=== PATIENT | female | born 1945 | race Caucasian/White ===

== ENCOUNTER → 2019-02-06 | Outpatient (CLI) | payer SELFPAY | PROVIDERS: Family Provider Family Medicine; Visit Provider Internal Medicine Medical Oncology | DX: D72.829 Elevated white blood cell count, unspecified (principal); R10.9 Unspecified abdominal pain; I10 Essential (primary) hypertension; E78.5 Hyperlipidemia, unspecified; J44.9 Chronic obstructive pulmonary disease, unspecified; I48.91 Unspecified atrial fibrillation; I50.9 Heart failure, unspecified; K21.9 Gastro-esophageal reflux disease without esophagitis; E03.9 Hypothyroidism, unspecified; M81.0 Age-related osteoporosis without current pathological fracture; F41.8 Other specified anxiety disorders; Z86.718 Personal history of other venous thrombosis and embolism | CPT/HCPCS: 99213 ==

== ENCOUNTER 2020-04-20 21:05 | Inpatient (IN) | payer MEDICARE, MEDICAID, SELFPAY ==
[2020-04-20] VITALS (11 sets, daily range): BP systolic 102–137; BP diastolic 50–64; PULSE 72–85; RESP 12–23; TEMP 36.9; O2SAT 90–95; BMI 22.4
--- NOTE | 2020-04-20 21:09 | XRR_ITS ---
PROCEDURE INFORMATION: Exam: XR Chest Exam date and time: 04/20/2020 9:47 PM Age: 74 years old Clinical indication: Shortness of breath; Prior surgery; Surgery type: Gb; Additional info: SOB TECHNIQUE: Imaging protocol: XR of the chest Views: 1 view. COMPARISON: No relevant prior studies available. FINDINGS: Lungs: The lungs are somewhat hyperinflated with increased interstitial markings, likely representing COPD. There is an airspace opacity in the left lower lobe. Possible trace left pleural effusion. No pneumothorax. Pleural spaces: See Lungs findings. Heart/Mediastinum: Unremarkable. No cardiomegaly. Vasculature: Aortic arch atherosclerotic calcifications seen. Bones/joints: Mild levocurvature of the spine and degenerative changes seen. XR/XR chest 1V portable [id number] IMPRESSION: 1. Left lower lobe airspace opacity. Pneumonia should be excluded clinically. 2. Possible trace left pleural effusion. 3. COPD changes.
--- NOTE | 2020-04-20 21:10 | ECG_ITS ---
[facility] Test Date: 2020-04-20 Pat Name: Ingrid Deras Department: Room: Gender: Female Communication Signals Intelligence: : 1945 Requested By: Matt Doran Order Number: [id number] Simpson MD: Srinath Kaye M.D. Measurements Intervals Kim Rate: 77 P: 54 MS: 129 QRS: -61 QRSD: 110 T: 35 QT: 360 QTc: 409 Interpretive Statements SINUS RHYTHM LEFT ANTERIOR FASCICULAR BLOCK [QRS AXIS <= -45, QR IN I, RS IN II] LEFT VENTRICULAR HYPERTROPHY AND ST-T CHANGE [VOLTAGE CRITERIA PLUS ST/T ABNORMALITY] No previous ECG available for comparison Electronically Signed On 04-21-2020 18:54:46 FERRYBOAT PILOT by Srinath Kaye M.D. [id number]
[2020-04-20 21:25] LABS: ABG PCO2 51.7 mmHg (35-45); ABG PH Result 7.34 (7.35-7.45); Arterial Blood Gas Hematocrit 37.8 % (37-47); Base Excess ABG 0.9 mmol/L (-2.0-2.0); Blood Gas Allen Test Pos; Blood Gas Sample Site Radial, left; Blood Gas Sample Type Arterial; Carboxyhemoglobin 2.3 %THgb (0.4-20.1); HCO3 ABG 27.5 mmol/L (22-26); HGB O2 Sat 82.2 % (95-100); Methemoglobin 0.8 % (0.4-1.5); Oxygen Device OXY MASK; PO2 ABG 47.1 mmHg (80.0-100.0); Total Hemoglobin 12.3 g/dL (12-16)
--- NOTE | 2020-04-20 21:27 | W.ED.GENADLT ---
HPI - General Adult General: Chief complaint: Shortness of Breath/Dyspnea Stated complaint: RESP DISTRESS Time Seen by Provider: 04/20/20 21:09 Source: EMS Limitations: altered mental status History of Present Illness: HPI narrative: Patient is an acute on chronically ill-appearing 74-year-old female brought into the ER by EMS for respiratory distress. EMS states that her home pulse ox was in the 70s. She was placed on a nonrebreather and satting in the upper 80s upon arrival. She was given a dose of Lasix and 20 mg of Decadron as well as a DuoNeb updraft in route. Patient seems somewhat confused and is unable to provide any significant history. Family states that she was not acting her baseline. Onset (ago): hour(s) Severity: severe Relieving factors: none Exacerbating factors: none Associated symptoms: Reports confusion, dyspnea and short of breath Review of Systems General: Reports: ROS unobtainable due to medical condition and ROS unobtainable due to mental status Resp: Reports: dyspnea Neuro: Reports: confusion PFSH ED PFSH: Medical History (Updated 04/20/20 @ 22:57 by Matt Doran MD) CHF (congestive heart failure) Chronic back pain COPD (chronic obstructive pulmonary disease) Fibromyalgia Hyperlipidemia Hypertension Hypothyroidism Paroxysmal atrial fibrillation Social History Smoking and tobacco status: former smoker Quit status (tobacco): has quit using tobacco Second hand smoke exposure: No Smoking risk assessment/counseling performed?: Yes Alcohol intake: never Desire information about alcohol rehabilitation?: No Counseling given: No Desire information about substance/drug rehabilitation?: No Counseling given: No Adopted: No Caregiver/support person: Yes Lives independently: Yes Housing: Apartment Marital status: Unknown Number of children: 2 Number of grandchildren: 4 Current occupational status: retired Physical Exam Const: COMMON NORMALS: no acute distress; negative for patient oriented x3 EXAM LIMITATIONS: altered mental status GENERAL APPEARANCE: cooperative ORIENTATION/CONSCIOUSNESS: Yes awake, Yes oriented to person, Yes oriented to place and Yes confused; not oriented to time HENMT: COMMON NORMALS: normocephalic, atraumatic and hearing grossly normal bilaterally HEAD & SCALP: normocephalic and atraumatic Eye: COMMON NORMALS: EOMs intact bilaterally and conjunctivae normal CONJUNCTIVA: Yes conjunctivae normal Neck/C-Spine: COMMON NORMALS: supple Chest: COMMONS NORMALS: normal inspection of the chest Resp: EFFORT & INSPECTION: No respiratory distress OTHER: Mild tachypnea with some mild increased respiratory effort. She is able to try to answer questions but due to her confusion has some difficulty doing so. Diminished breath sounds throughout. Cardio: COMMON NORMALS: regular rate and regular rhythm RATE: regular rate RHYTHM: regular rhythm GI: COMMON NORMALS: Soft to palpation and non-tender PALPATION: Yes Soft to palpation Extremity: COMMON NORMALS: normal to inspection and no clubbing, cyanosis or edema Neuro: COMMON NORMALS: negative for patient oriented x3 SENSORIUM/ORIENTATION: Yes oriented to person, Yes oriented to place and No oriented to time Psych: COMMON NORMALS: cooperative Skin: COMMON NORMALS: no rashes or lesions noted GENERAL SKIN EXAM: no rashes or lesions noted Course Vital Signs: Vital signs: Vital Signs Temperature 98.4 F 04/20/20 21:25 Pulse Rate 85 04/20/20 22:30 Respiratory Rate 18 04/20/20 22:30 Blood Pressure 131/57 04/20/20 22:30 Pulse Oximetry 94 04/20/20 22:30 MDM - General Adult MDM Narrative: Medical decision making narrative: Chronically ill 74-year-old female who presents with confusion and respiratory distress with hypoxemia. She was hypoxemic on nonrebreather and was placed on BiPAP. Chest x-ray appears show a left lower lobe consolidation. She has a leukocytosis with left shift. Covid swab is negative. She was started on broad-spectrum antibiotics with Rocephin and azithromycin for community-acquired pneumonia. Hospitalist has been consulted. Dr. Brown has accepted for admission. Lab Data: Attestation: I reviewed the patient's lab results. Labs: Lab Results 04/20/20 04/20/20 04/20/20 Range/Units 21:15 21:24 21:24 WBC 21.2 H (4.0-10.0) 10^3/ uL RBC 4.19 (4.1-5.3) 10^6/u L Hgb 12.1 (11.5-15.3) g/dL Hct 40.0 (37.0-47.0) % MCV 95.5 (81-99) fL MCH 28.9 (28.0-34.0) pg MCHC 30.3 (30.0-36.0) g/dL RDW 14.2 (12.1-15.1) % Plt Count 273 (130-400) 10^3/c mm MPV 10.0 (7.4-10.4) fL Neut % (Auto) 80.7 % Lymph % (Auto) 12.9 % Alcorn % (Auto) 4.6 % Eos % (Auto) 0.8 % Baso % (Auto) 0.4 % Neut # (Auto) 17.11 H (1.8-7.7) 10^3/u L Lymph # (Auto) 2.7 (0.8-4.8) 10^3/u L Alcorn # (Auto) 1.0 H (0.2-0.9) 10^3/u L Eos # (Auto) 0.2 (0.0-0.8) 10^3/u L Baso # (Auto) 0.1 (0.0-0.1) 10^3/u L Nucleated RBC % (a uto) 0 % Nucleated RBCs # 0.0 /100WBC Specimen Type Arterial Sample Site Radial, left ABG pH 7.34 L (7.35-7.45) ABG pCO2 51.7 H (35-45) mmHg ABG pO2 47.1 L (80.0-100.0) mmH g ABG HCO3 27.5 H (22-26) mmol/L ABG Base Excess 0.9 (-2.0-2.0) mmol/ L Babatunde Test Pos Hematocrit 37.8 (37-47) % Hgb O2 Saturation 82.2 L (95-100) % Carboxyhemoglobin 2.3 (0.4-20.1) %THgb Methemoglobin 0.8 (0.4-1.5) % Total Hemoglobin 12.3 (12-16) g/dL O2 Delivery Device Oxy mask O2 Liters/Min 15.0 % Store Standards Associate ID [email or web address] Sodium 140 (136-145) mmol/L Potassium 4.3 (3.5-5.1) mmol/L Chloride 101 (98-107) mmol/L Carbon Dioxide 25 (22-29) mmol/L Anion Gap 18.3 (5-19) BUN 19 (8-23) mg/dL Creatinine 2.2 H (0.5-0.9) mg/dL GFR Calculation Not Reportable Glucose 117 H (65-115) mg/dL Calculated Osmolal ity 293 (285-295) mOsm/k g Lactic Acid (0.5-2.2) mmol/L Calcium 8.7 (8.5-10.5) mg/dL Total Bilirubin 0.4 (0.15-1.2) mg/dL AST 31 (0-32) U/L ALT 19 (0-33) U/L Alkaline Phosphata se 104 (35-105) IU/L Troponin T Baselin e (0-10) ng/L NT-Pro-B Natriuret Pep 332 H (0-125) pg/mL Total Protein 6.5 L (6.6-8.7) g/dL Albumin 3.7 (3.5-5.2) g/dL Globulin 2.8 (1.3-4.6) g/dL SARS-CoV-2 Ag (Rap id) (Negative) 04/20/20 04/20/20 04/20/20 Range/Units 21:24 21:24 21:32 WBC (4.0-10.0) 10^3/ uL RBC (4.1-5.3) 10^6/u L Hgb (11.5-15.3) g/dL Hct (37.0-47.0) % MCV (81-99) fL MCH (28.0-34.0) pg MCHC (30.0-36.0) g/dL RDW (12.1-15.1) % Plt Count (130-400) 10^3/c mm MPV (7.4-10.4) fL Neut % (Auto) % Lymph % (Auto) % Alcorn % (Auto) % Eos % (Auto) % Baso % (Auto) % Neut # (Auto) (1.8-7.7) 10^3/u L Lymph # (Auto) (0.8-4.8) 10^3/u L Alcorn # (Auto) (0.2-0.9) 10^3/u L Eos # (Auto) (0.0-0.8) 10^3/u L Baso # (Auto) (0.0-0.1) 10^3/u L Nucleated RBC % (a uto) % Nucleated RBCs # /100WBC Specimen Type Sample Site ABG pH (7.35-7.45) ABG pCO2 (35-45) mmHg ABG pO2 (80.0-100.0) mmH g ABG HCO3 (22-26) mmol/L ABG Base Excess (-2.0-2.0) mmol/ L Babatunde Test Hematocrit (37-47) % Hgb O2 Saturation (95-100) % Carboxyhemoglobin (0.4-20.1) %THgb Methemoglobin (0.4-1.5) % Total Hemoglobin (12-16) g/dL O2 Delivery Device O2 Liters/Min % Store Standards Associate ID Sodium (136-145) mmol/L Potassium (3.5-5.1) mmol/L Chloride (98-107) mmol/L Carbon Dioxide (22-29) mmol/L Anion Gap (5-19) BUN (8-23) mg/dL Creatinine (0.5-0.9) mg/dL GFR Calculation Glucose (65-115) mg/dL Calculated Osmolal ity (285-295) mOsm/k g Lactic Acid 1.2 (0.5-2.2) mmol/L Calcium (8.5-10.5) mg/dL Total Bilirubin (0.15-1.2) mg/dL AST (0-32) U/L ALT (0-33) U/L Alkaline Phosphata se (35-105) IU/L Troponin T Baselin e 19 H (0-10) ng/L NT-Pro-B Natriuret Pep (0-125) pg/mL Total Protein (6.6-8.7) g/dL Albumin (3.5-5.2) g/dL Globulin (1.3-4.6) g/dL SARS-CoV-2 Ag (Rap id) Negative (Negative) Imaging Data^: CXR: My impression: Left lower lobe consolidation consistent with pneumonia. EKG Data^: EKG 1: EKG interpretation date: 04/20/20 EKG interpretation time: 21:45 Interpretation: Sinus rhythm. Rate of 77 bpm. Left axis deviation. Left anterior fascicular block noted. No ST elevation or depressions. ABG Data^: ABG Interpretation 1: ABG results: 02/28/21 21:15 ABG pH 7.34 L ABG pCO2 51.7 H ABG pO2 47.1 L ABG HCO3 27.5 H ABG Base Excess 0.9 Attestation: I personally reviewed and interpreted this ABG as follows: Interpretation: Hypoxemia. Discharge Plan Discharge Patient Disposition: Admitted As Inpatient Clinical Impression: Community acquired pneumonia Qualifiers: Laterality: left Lung location: lower lobe of lung Qualified Code(s): J18.9 - Pneumonia, unspecified organism Respiratory failure Qualifiers: Chronicity: acute Respiratory failure complication: hypoxia Qualified Code(s): J96.01 - Acute respiratory failure with hypoxia Condition: Stable Coding Level of Care Code ED Head Field Hockey Coach for g Fwd Exam Comprehensive
[2020-04-20 22:00] LABS: Basophils # 0.1 10^3/uL (0.0-0.1); Basophils % 0.4 %; Eosinophils # 0.2 10^3/uL (0.0-0.8); Eosinophils % 0.8 %; Hemoglobin 12.1 g/dL (11.5-15.3); Lymphocytes # 2.7 10^3/uL (0.8-4.8); Lymphocytes % 12.9 %; Mean Corpuscular HGB Conc 30.3 g/dL (30.0-36.0); Mean Corpuscular Hemoglobin 28.9 pg (28.0-34.0); Mean Corpuscular Volume 95.5 fL (81-99); Monocytes % 4.6 %; Neutrophils # 17.11 10^3/uL (1.8-7.7); Neutrophils % 80.7 %; Nucleated Red Blood Cells % 0 %; Platelet Count 273 10^3/cmm (130-400); Red Blood Count 4.19 10^6/uL (4.1-5.3); Red Cell Distribution Width 14.2 % (12.1-15.1); White Blood Count 21.2 10^3/uL (4.0-10.0)
[2020-04-20 22:20] LABS: Lactic Sepsis W/Reflex 1.2 mmol/L (0.5-2.2)
[2020-04-20 22:20] LABS: SARS Covid-2 Antigen Negative (Negative)
[2020-04-20 22:23] LABS: Alanine Aminotransferase 19 U/L (0-33); Albumin Level 3.7 g/dL (3.5-5.2); Alkaline Phosphatase 104 IU/L (35-105); Anion Gap 18.3 (5-19); Aspartate Amino Transferase 31 U/L (0-32); Blood Urea Nitrogen 19 mg/dL (8-23); Calcium 8.7 mg/dL (8.5-10.5); Carbon Dioxide 25 mmol/L (22-29); Chloride 101 mmol/L (98-107); Globulin 2.8 g/dL (1.3-4.6); Glucose 117 mg/dL (65-115); NT Pro B Type Natriuretic Pept 332 pg/mL (0-125); Osmolality Calculated 293 mOsm/kg (285-295); Potassium 4.3 mmol/L (3.5-5.1); Sodium 140 mmol/L (136-145); Total Bilirubin 0.4 mg/dL (0.15-1.2); Total Protein 6.5 g/dL (6.6-8.7)
[2020-04-20 22:24] LABS: Troponin(5th) Baseline 19 ng/L (0-10)
[2020-04-20] MEDS: azithromycin 500 MG in sodium chloride 0.9% 250 ML 250 MG IV (22:32)
[2020-04-20] MEDS: cefTRIAXone 1,000 MG in sodium chloride 0.9% (plus) 50 ML 100 MG IV (22:32)
--- NOTE | 2020-04-20 22:54 | P.HP_ITS ---
Providers/Chief Complaint Primary Care Provider: Roderick Andrews Chief Complaint: RESP DISTRESS History of Present Illness Ingrid Deras is a 74 year old female who presented today with chief complaint of worsening shortness of breath. Granddaughter is at the bedside who is endorsing that around noon she started shaking really bad, an episode of seizure was noticed by the family member. 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 Today after noon her symptoms started getting worse she was getting labored and short of breath, she was becoming wheezing and congested. No episode of seizure, vomiting, patient did not endorse chest pain before her shortness of breath, no recent diarrhea or recent falls. Diagnosis in the ER revealed sepsis secondary to community-acquired pneumonia left lower lobe infiltrate, she has been given ceftriaxone and azithromycin in the ER to decrease work of breathing she was started on BiPAP she did not tolerate nonrebreather mask she also received Lasix and DuoNeb treatment Covid antigen negative, D-dimer 1.3, creatinine 2.2, I will start her on heparin, when I evaluated her she was obtunded and drowsy however able to open her eyes on verbal command but very lethargic and seems postictal, BiPAP would be considered high risk and I discussed intubation with the family, son and granddaughter were adamant that they would like to hold off on intubation for now, they were also questioning why ICU is needed, their questions were answered to their satisfaction. I am also allowing her granddaughter to stay with her overnight. Family stating that this is her usual routine after seizures and she perks up in the morning. I have explained the indications and contraindications of BiPAP and risk of vomiting and aspiration including hypoxia cardiac arrest, family is okay with ICU admission on BiPAP and would like to hold off on intubation for now. Review of Systems General: Reports: ROS unobtainable due to medical condition (Post ictal) Medications/Allergies Home Medications Medication Instructions Recorded Confirmed Last Taken Type alendronate 70 mg tablet 70 mg PO ONCE 02/22/19 12/18/19 Unknown History aspirin 81 mg tablet,delayed 81 mg PO ONCE 02/22/19 12/18/19 Unknown History release atorvastatin 10 mg tablet 10 mg PO ONCE 02/22/19 12/18/19 Unknown History baclofen 10 mg tablet 10 mg PO BID 02/22/19 12/18/19 Unknown History tstdrgeghm-qtznpthhgxtjx-jxvygpgg 1 tab PO Q6H PRN 02/22/19 12/18/19 Unknown His tory 50 mg-325 mg-40 mg tablet clonazepam 1 mg tablet 1 mg PO BID 02/22/19 12/18/19 Unknown History dicyclomine 10 mg capsule 10 mg PO BID 02/22/19 12/18/19 Unknown History digoxin 125 mcg (0.125 mg) tablet 250 mcg PO Q6H 02/22/19 12/18/19 Unknown History diltiazem HCl 30 mg tablet 30 mg PO TID 02/22/19 12/18/19 Unknown History fluoxetine 40 mg capsule 40 mg PO QAM 02/22/19 12/18/19 Unknown History furosemide 20 mg tablet 10 mg PO QAM 02/22/19 12/18/19 Unknown History levothyroxine 125 mcg capsule 125 mcg PO ONCE 02/22/19 12/18/19 Unknown History loratadine 10 mg capsule 10 mg PO ONCE 02/22/19 12/18/19 Unknown History meclizine 12.5 mg tablet 12.5 mg PO BID 02/22/19 12/18/19 Unknown History mirtazapine 15 mg tablet 15 mg PO ONCE 02/22/19 12/18/19 Unknown History montelukast 10 mg tablet 10 mg PO ONCE 02/22/19 12/18/19 Unknown History oxycodone 30 mg tablet 30 mg PO Q6H PRN 02/22/19 12/18/19 Unknown History trazodone 150 mg tablet PO 02/22/19 12/18/19 Unknown History Allergies Allergy/AdvReac Type Severity Reaction Status Date / Time celecoxib [From Celebrex] Allergy Intermediate Hives Verified 04/20/20 21:33 Sulfa (Sulfonamide Allergy Intermediate hives Verified 04/20/20 21:33 Antibiotics) PFSH Acute PFSH: Medical History CHF (congestive heart failure) Chronic back pain COPD (chronic obstructive pulmonary disease) Oxygen dependent DVT (deep venous thrombosis) Fibromyalgia Hyperlipidemia Hypertension Hypothyroidism Paroxysmal atrial fibrillation TIA (transient ischemic attack) Surgical History No pertinent past surgical history Family History Other Family history non-contributory Social History Smoking and tobacco status: former smoker Quit status (tobacco): has quit using tobacco Second hand smoke exposure: No Smoking risk assessment/counseling performed?: Yes Alcohol intake: never Desire information about alcohol rehabilitation?: No Counseling given: No Desire information about substance/drug rehabilitation?: No Counseling given: No Adopted: No Caregiver/support person: Yes Lives independently: Yes Housing: Apartment Marital status: Unknown Number of children: 2 Number of grandchildren: 4 Current occupational status: retired Vitals/I&O/Wt Last Vital Signs Temp 98.4 F 04/20/20 21:25 Pulse 85 04/20/20 22:30 Resp 18 04/20/20 22:30 BP 131/57 04/20/20 22:30 Pulse Ox 94 04/20/20 22:30 Weight last 48 hrs Weight 52.163 kg Physical Exam Narrative: EXAM NARRATIVE: Frail elderly female Currently on BiPAP settings 18/8 FiO2 60% respiratory rate 10 tidal volume 700- 800, saturating 90 to 92% however she is drowsy She is able to open her eyes on verbal command, she moves her extremities to noxious stimuli, no active seizure-like activity noticed, no strokelike symptoms noted no facial droop noticed when I remove the BiPAP mask, she is weak but has withdrawal stimulus to noxious stimuli of all 4 extremities EOMI S1, S2 sinus rhythm heart rate ranging between 60-66 normal hemodynamics Abdomen soft nontender Lower extremity no edema gangrene or ulcer Drowsy, GCS 10 No skin cellulitis Data : 04/20/20 21:24 04/20/20 21:24 Micro: Microbiology 04/20/20 21:30 Blood Culture - Preliminary Blood SPECIMEN COLLECTED 04/20/20 21:24 Blood Culture - Preliminary Blood SPECIMEN COLLECTED A&P Assessment and plan (1) Community acquired pneumonia: Community-acquired pneumonia with metabolic encephalopathy Admit to ICU We will initiate ceftriaxone and azithromycin regimen, requested urine antigens, DuoNeb every 4 as needed Status: Acute Qualifiers: Laterality: left Lung location: lower lobe of lung Qualified Code(s): J18.9 - Pneumonia, unspecified organism (2) Acute and chronic respiratory failure with hypoxia: Currently doing well on BiPAP however high risk for aspiration with underlying pneumonia and chest congestion, family is adamant about holding off on intubation ABG reveals hypoxia, D-dimer high for her age, will start therapeutic heparin protocol VQ mismatch due to left lower lobe infiltrate, PE not ruled out Status: Acute (3) Sepsis: Criteria met with tachypnea and leukocytosis secondary to left lower lobe pneumonia, currently on antibiotic, judicious use of fluids due to slight pulmonary venous congestion and high BNP clinically looks euvolemic Requested blood culture Status: Acute (4) Post-ictal aphasia: Breakthrough seizures witnessed by the family member at noon I will load her with Keppra No severe electrolyte abnormality noticed Would request CT head as well She has been afebrile Status: Acute Additional A&P Information Hypothyroidism: Continue 125 mcg of levothyroxine Congestive heart failure without acute exacerbation clinically, hold off on Lasix, clinically she is euvolemic Discontinue mirtazapine, baclofen and oxycodone Full code: Patient is high risk for intubation family is adamant about not intubating her at this point although her GCS is 10 and she is very drowsy while she is on BiPAP, they would like to discuss further if she deteriorates from her current situation N.p.o. Therapeutic dose of heparin initiated Attestations Medical Necessity Statement*: Admit to ICU for sepsis, community-acquired pneumonia, metabolic encephalopathy post ictal phase of breakthrough seizures Time Spent in Patient Care: Greater than 35 minutes (>than 50% of time spent in counselling and/or direct pt care on unit) . 50mins Coding Level of Care Code Acute Insulation Board Back Tender for [facility] Fwd Diagnoses Community acquired pneumonia J18.9 Laterality: left Lung location: lower lobe of lung Acute and chronic respiratory failure with hypoxia J96.21 Sepsis A41.9 Post-ictal aphasia R47.01
[2020-04-20 23:09] LABS: INR 1.06 (0.8-1.2)
--- NOTE | 2020-04-20 23:10 | ECG_ITS ---
[facility] Test Date: 2020-04-21 Pat Name: Ingrid Deras Department: Room: 278 Gender: Female Ingot Passer: : 1945 Requested By: Matt Doran Order Number: [id number] Simpson MD: Srinath Kaye M.D. Measurements Intervals [place] Rate: 64 P: 69 SC: 152 QRS: -58 QRSD: 103 T: 33 QT: 397 QTc: 413 Interpretive Statements SINUS RHYTHM LEFT ANTERIOR FASCICULAR BLOCK [QRS AXIS <= -45, QR IN I, RS IN II] LEFT VENTRICULAR HYPERTROPHY AND ST-T CHANGE [VOLTAGE CRITERIA PLUS ST/T ABNORMALITY] Compared to ECG 04/20/2020 21:39:28 No significant changes Electronically Signed On 04-21-2020 19:01:39 BRIDGE MECHANIC by Srinath Kaye M.D. [id number]
[2020-04-20 23:12] LABS: D Dimer 1.34 ug/mIFEU (0-0.59)
[2020-04-20] MEDS: sodium chloride 0.9% 1,000 ML 999 ML IV (23:13)
[2020-04-20 23:57] LABS: Troponin 5 2HR 17.89 ng/L (0-10)
[2020-04-21] VITALS (60 sets, daily range): BP systolic 93–147; BP diastolic 41–99; PULSE 65–80; RESP 13–25; TEMP 36.9–37.2; O2SAT 87–99
[2020-04-21 00:06] LABS: Troponin 5 2HR Delta -1.11 ABS# (0-10)
--- NOTE | 2020-04-21 00:54 | CTR_ITS ---
PROCEDURE INFORMATION: Exam: CT Head Without Contrast Exam date and time: 04/21/2020 12:54 AM Age: 74 years old Clinical indication: Other: Seizure TECHNIQUE: Imaging protocol: Computed tomography of the head without contrast. Radiation optimization: All CT scans at this facility use at least one of these dose optimization techniques: automated exposure control; mA and/or kV adjustment per patient size (includes targeted exams where dose is matched to clinical indication); or iterative reconstruction. COMPARISON: No relevant prior studies available. RADIATION DOSE METRICS: Total DLP (mGy-cm): 898.52 FINDINGS: Brain: No acute intracranial hemorrhage or mass effect. There is decreased attenuation in the periventricular white matter, likely from microvascular disease. 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 No definite acute infarct by CT. MRI could be more sensitive/specific for detection, as clinically directed. Cerebral ventricles: Ventricle size is normal for age. Bones/joints: No definite acute skull fracture. Paranasal sinuses: Included paranasal sinuses are essentially clear. Mastoid air cells: No significant acute finding. CT/CT head wo con* [id number] IMPRESSION: 1. No acute intracranial hemorrhage or mass effect. 2. No definite acute infarct by CT, see above. 3. Other findings discussed above. Radiation Dose CTDIVOL = (mGy): DLP = 898.52 (mGy-cm)
[2020-04-21] MEDS: azithromycin 500 MG in sodium chloride 0.9% 250 ML 250 MG IV ×2 (02:12→13:24)
[2020-04-21] MEDS: ipratropium-albuterol 3 mL Neb INHALATION ×2 (02:23→07:50)
[2020-04-21] MEDS: heparin drip 25,000 UNIT/500 ML PREMIX 15 UNIT IV (02:44)
[2020-04-21 07:42] LABS: Basophils # 0.1 10^3/uL (0.0-0.1); Basophils % 0.4 %; Eosinophils # 0.1 10^3/uL (0.0-0.8); Eosinophils % 0.6 %; Hematocrit 38.9 % (37.0-47.0); Hemoglobin 11.6 g/dL (11.5-15.3); Lymphocytes # 0.4 10^3/uL (0.8-4.8); Lymphocytes % 2.2 %; Mean Corpuscular HGB Conc 29.8 g/dL (30.0-36.0); Mean Corpuscular Hemoglobin 28.8 pg (28.0-34.0); Mean Corpuscular Volume 96.5 fL (81-99); Mean Platelet Volume 9.8 fL (7.4-10.4); Monocytes # 0.5 10^3/uL (0.2-0.9); Monocytes % 2.8 %; Neutrophils % 93.6 %; Nucleated Red Blood Cells % 0 %; Platelet Count 249 10^3/cmm (130-400); Red Blood Count 4.03 10^6/uL (4.1-5.3); Red Cell Distribution Width 14.2 % (12.1-15.1)
[2020-04-21 08:11] LABS: Anion Gap 18.7 (5-19); Carbon Dioxide 24 mmol/L (22-29); Chloride 104 mmol/L (98-107); Glucose 168 mg/dL (65-115); Potassium 4.7 mmol/L (3.5-5.1); Sodium 142 mmol/L (136-145)
[2020-04-21] MEDS: cefTRIAXone 1,000 MG in sodium chloride 0.9% (plus) 50 ML 100 MG IV (08:44)
[2020-04-21 08:57] LABS: Blood Urea Nitrogen 21 mg/dL (8-23); Osmolality Calculated 301 mOsm/kg (285-295)
--- NOTE | 2020-04-21 09:03 | PC.NURSE ---
Patient remains alert and orientated x 0 this shift.
--- NOTE | 2020-04-21 09:30 | PC.CHAP ---
Pastoral Care Encounter/Spiritual Assessment Type of Contact [] Declined package car driver visit [] Patient/Family/Request visit [] Outpatient visit [] Follow-up visit [] Physician referral [] Code/Alert [x] Routine visit [] Staff referral [] Actively dying [] Patient sleeping [] Family support [] [] Out of room [] Palliative care [] [] Receiving care in room [] Pre-surgical visit [] Trauma [] Long length of stay [x] ICU visit [x] Other: ventilator Relational/Emotional Strength [] Patient feels connected with others/family/visitors/staff [] Distress [] Loneliness/isolation [] Abandonment Spirituality of Patient [] Person of Kelly [] Attends Bahai of their Kelly [] Believes in Prayer [] Reads Bible or Holiness materials [] There are Spiritual issues to be addressed Controller Repairer And Tester Interventions [x] Prayer [] Active listening [] Non-anxious presence [] Spiritual/emotional support [] Crisis/trauma care [] Spiritual counseling [] Bereavement support [] Provided bereavement packet [] Provided Bible/devotional materials [] Provided toy/stuffed animal, coloring book to patient or family member [] Provided Communion [] Anointing/Perkins [] Salvation [x] Completed spiritual assessment [] Other: Impact on Illness or Injury [] Angry [] Fearful [] Anxious [] Often cries [] Exhaustion [] Unable to work [] Unable to attend jewish [] Unable to walk/stand [] Unable to read [] Unable to drive [] Unable to eat/drink [] Unable to sleep [] Unable to be with family [] Patient intubated [] Other: Summary Time spent with patient
--- NOTE | 2020-04-21 12:46 | PC.NURSE ---
Late medications Patients abt was given late due to limited IV access. Multiple nurses throughout the hospital attempted iv insertion without success.
--- NOTE | 2020-04-21 13:01 | PM.PN ---
Subjective Subjective: Interval history: Patient was seen and examined this morning. She was alert oriented x3.She was Following commands. She was on BiPAP and was saturating well. Our Plan is to switch her to oxygen via NC. She has remained afebrile. We have also started her on clear liquid diet, will advance the diet as tolerated. Her other vitals and labs have been reviewed. Medications: Reviewed: Yes Vitals/I&O/Wt Last Vital Signs Temp 98.9 F 04/21/20 04:30 Pulse 73 04/21/20 07:54 Resp 18 04/21/20 07:50 BP 123/70 04/21/20 06:15 Pulse Ox 94 04/21/20 07:52 04/20/20 04/21/20 04/21/20 22:59 06:59 14:59 Intake Total 1660 / 1660 200.5 / 200.5 Balance 1660 / 1660 200.5 / 200.5 Weight last 48 hrs Weight 52.163 kg Data : 04/21/20 06:21 04/21/20 06:21 Micro: Microbiology 04/20/20 21:30 Blood Culture - Preliminary Blood SPECIMEN COLLECTED 04/20/20 21:24 Blood Culture - Preliminary Blood SPECIMEN COLLECTED A&P Assessment and plan (1) Acute encephalopathy: Acute metabolic encephalopathy 2/2 Sepsis 2/2 CAP: Improving No severe electrolyte abnormality noticed CT Head without contrast : No acute intrcranial pathology Continue ceftriaxone and azithromycin Status: Acute (2) Community acquired pneumonia: Community-acquired pneumonia ceftriaxone and azithromycin regimen, Follow urine antigens, DuoNeb every 4 as needed Status: Acute Qualifiers: Laterality: left Lung location: lower lobe of lung Qualified Code(s): J18.9 - Pneumonia, unspecified organism (3) Acute and chronic respiratory failure with hypoxia: Currently doing well on BiPAP however high risk for aspiration with underlying pneumonia and chest congestion, family is adamant about holding off on intubation ABG reveals hypoxia, D-dimer high for her age, will start therapeutic heparin protocol VQ mismatch due to left lower lobe infiltrate, PE not ruled out Status: Acute (4) Sepsis: Criteria met with tachypnea and leukocytosis secondary to left lower lobe pneumonia, currently on antibiotic, judicious use of fluids due to slight pulmonary venous congestion and high BNP clinically looks euvolemic Requested blood culture Status: Acute (5) Post-ictal aphasia: Breakthrough seizures witnessed by the family member at noon No severe electrolyte abnormality noticed CT Head without contrast : No acute intrcranial pathology Loaded with Keppra Continue Keppra 500 mg I.V q12 h daily Status: Acute Additional A&P Information Hypothyroidism: Continue 125 mcg of levothyroxine Congestive heart failure without acute exacerbation clinically, hold off on Lasix, clinically she is euvolemic Discontinue mirtazapine, baclofen and oxycodone Therapeutic dose of heparin initiated was initiated as initially there was high clinical suspicion for P.E. Given the fact she is currently saturating well on 2ls oxygen via nC.We have Discontinued Therapeutic dose of heparin and placed her on ppx heparin. Full code Attestations Medical Necessity Statement*: Patient needs to be in hospital for the management of PNA/SEPSIS/Ac encephalopathy. Coding Level of Care Code Acute Cigarette Making Machine Catcher for Almaz Palmer Diagnoses Acute encephalopathy G93.40 Community acquired pneumonia J18.9 Laterality: left Lung location: lower lobe of lung Acute and chronic respiratory failure with hypoxia J96.21 Sepsis A41.9 Post-ictal aphasia R47.01
[2020-04-21 13:03] LABS: Partial Thromboplastin Time 47.2 SECONDS (23.9-36.7)
--- NOTE | 2020-04-21 13:05 | PC.PHAR ---
pt unable to verify medications-called pts daughter in law she states a lady named alondra takes care of the pts medications called the number she gave for alondra it was out of service-pt pts daughter in law states [facility] is where she see the dr and they should have a medication list-medications entered are from the medication list from the [facility]
--- NOTE | 2020-04-21 17:25 | PC.NURSE ---
Leaving AMA This nurse was approached by another nurse resident stating that patient was wanting to leave the hospital. Patient said she was frustrated because she didn't want to go to a care home and stated the doctor didn't come see her. Patients granddaughter Patti arrived in the unit and she was encouraging her to leave the hospital AMA. Patti, the granddaughter, proceed to go into room and packed her things. Dr. Barros was called and asked to come speak to the patient when she began shouting in the hallway and charge nurse called a code 10. Staff responded. Dr Barros, this nurse, charge nurse, and nurse aerospace project manager all educated patient on why she should not leave AMA. Patient was alert and orientated x 4 and was able to sign AMA form. manager sharepoint accompanied this nurse. Patient left via wheelchair with Patti and nurse resident.
--- NOTE | 2020-04-21 17:41 | PM.EVENT ---
Event Note Event Note: At around 5 PM, I was called by the nurse, as the patient was trying to leave the hospital, when I talked to the patient she was AO*3 and she was adamant to go home.We explained her that she is very sick as has a bas pna going on for which she need to be in hospital and she needs to be on I.V abxs. We tried hard to address all her concerns but unfortunately we were not able to convince her to stay. The patient signed herself AMA.Her Grand daughter was with her.She was provided prescription for levofloxacin 750 mg po daily for 7 Days.
--- NOTE | 2020-04-21 17:46 | PC.NURSE ---
Nurse resident went into the room to find the patient, Ms. Deras sitting on the side of the bed requesting a walker. The patient said, If you don't get me a walker I will walk out on my own . I then told the patient that I would go look for a walker and return in a moment. Upon arriving in the patients room with the walker the patient stood up and took the walker in her hands and then proceeded to walk out the door of her room. Ms. Deras was adamant that she was going to the hospital entrance to get clothes from her granddaughter Patti.The patient was going to get clothes because she wanted to leave the hospital. After the charge nurse and I spoke with Ms. Deras and told her she had clothes in her room I was able to redirect the patient back to her room. Once we arrived back in Ms. Foreman room, she sat down on the bed and started pulling off her blood pressure, telemetry, and pulse oxygen cords in addition to the telemetry monitoring pads on her chest and abdomen. After all these cords were removed I then handed Ms. Deras her pajamas and assisted her in putting them on. Once the clothes were on, Ms. Deras stood up with her walker and walked out of the room, I followed behind her to make sure no injury resulted. Ms. Deras exited the door to her room and took a few steps before sitting down in the hallway in a wheelchair per request by the charge nurse. Once Ms. Deras was settled I placed a bedside table in front of the wheelchair so the patient could set her drinks down. After Ms. Deras sat down her granddaughter Patti walked into the unit. Patti, the patients granddaughter, walked over to where Ms. Deras was sitting in the hallway and talked to her grandmother. After talking to her grandmother, Patti went into Ms. Foreman room to retrieve her belongings and brought them out. While Patti was gathering Ms. Deras's belongings, the patient stood up from the chair and told me to move the bedside table forward. I did not move the table forward and Ms. Deras became very agitated that I was not moving the table forward and then proceeded to step out from behind the table, without a walker and walk towards the unit doors. I followed behind Ms. Deras supporting her in case she were to fall. Ms. Deras walked all the way to the corner of nurses station before she was stopped by the charge nurse. At this time Dr. Barros was called stating that the patient wanted to leave AMA. Ms. Deras refused to return to her room when asked. Patients nurse, charge nurse, nurse claim manager, and Dr. Barros informed the patient about her diagnosis, the dangers, and potential risks of leaving the hospital AMA. The patient stated she understood the risks of leaving the hospital and stated she still wanted to leave AMA. Before allowing the patient to sign the AMA paper, the ICU nurse claim manager made sure the patient was alert and oriented x4. The patient then proceeded to sign the AMA paper provided by the charge nurse which was witnessed by myself and the other presiding nurse of Ms. Armstrong. After Ms. Armstrong signed the paperwork I wheeled her out of the Intensive Care Unit in a wheelchair to the main entrance where she was met by her granddaughter who helped her into the car and drove away.
== END 2020-04-21 16:30 | disposition left against medical advice (07) | DRG 871 ==
LOC: ER 23:28 → MEDSURG 23:57 → ICU 04-21 00:49
PROVIDERS: Admitting Provider Internal Medicine; Emergency Provider Student in an Organized Health Care Education/Training Program; PCP Family Medicine; Visit Provider Internal Medicine
DX: A41.9 Sepsis, unspecified organism (principal); J18.9 Pneumonia, unspecified organism; G93.41 Metabolic encephalopathy; J96.21 Acute and chronic respiratory failure with hypoxia; J44.0 Chronic obstructive pulmonary disease with (acute) lower respiratory infection; R47.01 Aphasia; R56.9 Unspecified convulsions; Z53.29 Procedure and treatment not carried out because of patient's decision for other reasons; I11.0 Hypertensive heart disease with heart failure; I50.9 Heart failure, unspecified; G89.29 Other chronic pain; M54.9 Dorsalgia, unspecified; Z86.718 Personal history of other venous thrombosis and embolism; M79.7 Fibromyalgia; E78.5 Hyperlipidemia, unspecified; E03.9 Hypothyroidism, unspecified; I48.0 Paroxysmal atrial fibrillation; Z86.73 Personal history of transient ischemic attack (TIA), and cerebral infarction without residual deficits; Z87.891 Personal history of nicotine dependence
CPT/HCPCS: 12345; 36415; 36600; 70450; 71045; 80048; 80053; 82805; 83605; 83880; 84484; 85025; 85378; 85610; 85730; 87040; 87426; 93005; 94640; 94660; 96365; 96367; 99291; J0456; J0696; J1644; J1953; J7030; J7050

== ENCOUNTER → 2021-06-02 11:21 | Outpatient (BNVA) | payer MEDICARE, MEDICAID, SELFPAY | PROVIDERS: PCP Family Medicine; Visit Provider Podiatrist Foot & Ankle Surgery | DX: L84 Corns and callosities (principal); L97.411 Non-pressure chronic ulcer of right heel and midfoot limited to breakdown of skin; Z87.891 Personal history of nicotine dependence | CPT/HCPCS: 99213 ==

== ENCOUNTER → 2021-09-17 11:06 | Outpatient (BNVA) | payer MEDICARE, MEDICAID, SELFPAY | PROVIDERS: PCP Family Medicine; Visit Provider Podiatrist Foot & Ankle Surgery | DX: L97.411 Non-pressure chronic ulcer of right heel and midfoot limited to breakdown of skin (principal); L97.321 Non-pressure chronic ulcer of left ankle limited to breakdown of skin | CPT/HCPCS: 99213 ==

== ENCOUNTER → 2021-09-30 12:50 | Outpatient (BNVA) | payer MEDICARE, MEDICAID, SELFPAY | PROVIDERS: PCP Family Medicine; Visit Provider Internal Medicine | DX: M54.9 Dorsalgia, unspecified (principal); G89.29 Other chronic pain; M79.7 Fibromyalgia; M81.0 Age-related osteoporosis without current pathological fracture | CPT/HCPCS: 72040; 72072; 72100; 99204 ==

== ENCOUNTER → 2021-11-02 12:58 | Outpatient (BNVA) | payer MEDICARE, MEDICAID, SELFPAY | PROVIDERS: PCP Family Medicine; Visit Provider Podiatrist Foot & Ankle Surgery | DX: L84 Corns and callosities (principal); L85.1 Acquired keratosis [keratoderma] palmaris et plantaris; L97.321 Non-pressure chronic ulcer of left ankle limited to breakdown of skin | CPT/HCPCS: 99213; 99214 ==

== ENCOUNTER 2021-11-13 13:08 | Outpatient (CLI) | payer MEDICARE, MEDICAID, SELFPAY ==
--- NOTE | 2021-11-13 13:30 | XR_ITS ---
WS: [id number] SCREENING DEXA SCAN [employer] CLINICAL INFORMATION: M81.0 - Age-related osteoporosis without current patholog... COMPARISON: None. FINDINGS: The L1-L4 bone mineral density measures 1.163 g/cm2. This corresponds to a T score score of -0.1 and Z score of 2.3. Left femoral neck bone mineral density measures 0.357 g/cm2. This corresponds to a T score of -5.2 an d Z score of -2.9. Right femoral neck bone mineral density measures 0.475 g/cm2. This corresponds to a T score -4.2of an d Z score of -2.0. Mean femoral neck bone mineral density measures 0.416 g/cm2. This corresponds to a T score of -4.7 an d Z score of -2.4. XR/XR DEXA axial skeleton* [id number] IMPRESSION: Osteoporosis in the femoral necks. Normal bone mineralization in the lumbar spi ne although likely spuriously elevated due to endplate sclerosis.. Patient's FRAX calculated 10 year probability for major osteoporotic fracture i s 66.8 % and osteoporotic hip fracture is 57.2%.
== END 2021-11-13 13:09 | disposition home or self-care (01) ==
LOC: RAD 13:10
PROVIDERS: PCP Family Medicine; Visit Provider Internal Medicine
DX: M81.0 Age-related osteoporosis without current pathological fracture (principal)
CPT/HCPCS: 77080

== ENCOUNTER → 2021-12-29 11:16 | Outpatient (BNVA) | payer MEDICARE, MEDICAID, SELFPAY | PROVIDERS: PCP Family Medicine; Visit Provider Podiatrist Foot & Ankle Surgery | DX: L85.1 Acquired keratosis [keratoderma] palmaris et plantaris (principal) | CPT/HCPCS: 17110 ==

== ENCOUNTER → 2021-12-30 10:23 | Outpatient (BNVA) | payer MEDICARE, MEDICAID, SELFPAY | PROVIDERS: PCP Family Medicine; Visit Provider Internal Medicine | DX: M54.9 Dorsalgia, unspecified (principal); G89.29 Other chronic pain; M81.0 Age-related osteoporosis without current pathological fracture; M79.7 Fibromyalgia; R53.81 Other malaise | CPT/HCPCS: 99213 ==

== ENCOUNTER → 2022-05-13 13:09 | Outpatient (BNVA) | payer MEDICARE, MEDICAID, SELFPAY | PROVIDERS: PCP Family Medicine; Visit Provider Internal Medicine | DX: M79.7 Fibromyalgia (principal); M54.9 Dorsalgia, unspecified; G89.29 Other chronic pain; M81.0 Age-related osteoporosis without current pathological fracture | CPT/HCPCS: 99213 ==

== ENCOUNTER 2022-05-20 11:41 | Outpatient (CLI) | payer MEDICARE, MEDICAID, SELFPAY ==
--- NOTE | 2022-05-20 12:23 | XR_ITS ---
WS: [id number] Exam: XR lumbar spine 2-3V* [id number] Date/Time of Exam: 05/20/2022 12:42 PM Reason For Exam: M81.0 - Age-related osteoporosis without current patholog... Comparison 09/30/2021. No acute fracture or dislocation. Advanced disc degeneration at all levels with the exception of L4-5 . Marked facet arthropathy at all levels. Angular rotoscoliosis. Marked osteopenia. Aortic atheroscle rosis. XR/XR lumbar spine 2-3V* [id number] IMPRESSION: 1. Advanced degenerative changes and scoliosis. Osteopenia. 2. No acute fracture. No significant change.
[2022-05-20 12:27] LABS: Basophils % 0.4 %; Eosinophils % 0.3 %; Hematocrit 37.5 % (37.0-47.0); Hemoglobin 11.9 g/dL (11.5-15.3); Lymphocytes # 1.9 10^3/uL (0.8-4.8); Lymphocytes % 18.4 %; Mean Corpuscular HGB Conc 31.7 g/dL (30.0-36.0); Mean Corpuscular Hemoglobin 30.7 pg (28.0-34.0); Mean Corpuscular Volume 96.6 fl (81-99); Mean Platelet Volume 9.5 fL (7.4-10.4); Monocytes # 0.5 10^3/uL (0.2-0.9); Neutrophils % 74.7 %; Nucleated Red Blood Cells % 0 %; Platelet Count 273 10^3/cmm (130-400); Red Blood Count 3.88 10^6/uL (4.1-5.3); Red Cell Distribution Width 13.3 % (12.1-15.1)
[2022-05-20 12:36] LABS: Erythrocyte Sedimentation Rate 43 mm/hr (0-15)
[2022-05-20 12:50] LABS: Alanine Aminotransferase 13 U/L (0-33); Alkaline Phosphatase 91 U/L (35-105); Aspartate Amino Transferase 16 U/L (0-32); Blood Urea Nitrogen 29 mg/dL (8-23); Calcium 9.2 mg/dL (8.5-10.5); Carbon Dioxide 24 mmol/L (22-29); Chloride 103 mmol/L (98-107); Globulin 3.3 g/dL (1.3-4.6); Glucose 95 mg/dL (65-115); Osmolality Calculated 298 mOsm/kg (285-295); Sodium 141 mmol/L (136-145); Total Bilirubin 0.2 mg/dL (0.15-1.2); Total Protein 7.3 g/dL (6.6-8.7)
[2022-05-20 12:51] LABS: Anion Gap 18.7 (5-19); Potassium 4.7 mmol/L (3.5-5.1)
[2022-05-20 13:06] LABS: 25 Hydroxy Vitamin D 38 ng/mL (30-100)
== END 2022-05-20 11:42 | disposition home or self-care (01) ==
LOC: LAB 11:44
PROVIDERS: PCP Family Medicine; Visit Provider Internal Medicine
DX: M81.0 Age-related osteoporosis without current pathological fracture (principal); G89.29 Other chronic pain; M54.9 Dorsalgia, unspecified; M79.7 Fibromyalgia
CPT/HCPCS: 36415; 72100; 80053; 82306; 85025; 85651

== ENCOUNTER → 2022-07-14 13:54 | Outpatient (BNVA) | payer MEDICARE, MEDICAID, SELFPAY | PROVIDERS: PCP Family Medicine; Visit Provider Internal Medicine | DX: M79.7 Fibromyalgia (principal); M81.0 Age-related osteoporosis without current pathological fracture; M54.9 Dorsalgia, unspecified; G89.29 Other chronic pain; G56.20 Lesion of ulnar nerve, unspecified upper limb | CPT/HCPCS: 80053; 85025; 85651; 86140; 86200; 86431; 99214 ==

== ENCOUNTER 2022-08-25 10:02 | Oncology outpatient (recurring) (ONCR) | payer MEDICARE, MEDICAID, SELFPAY ==
[2022-08-25 11:30] VITALS: BP 120/78; PULSE 74; RESP 18; TEMP 37.2; O2SAT 98
[2022-08-25 12:00] LABS: Albumin Level 3.9 g/dL (3.5-5.2); Calcium 9.2 mg/dL (8.5-10.5)
[2022-08-25 12:13] LABS: 25 Hydroxy Vitamin D 70 ng/mL (30-100)
[2022-08-25] MEDS: denosumab 60 mg SDV SUBCUT (12:56)
[2022-08-25 13:00] VITALS: BP 120/78; PULSE 84; RESP 18; TEMP 36.6; O2SAT 98
== END 2022-09-20 23:59 | disposition home or self-care (01) ==
PROVIDERS: Internal Medicine; PCP Family Medicine; Visit Provider Neurological Surgery
DX: M81.0 Age-related osteoporosis without current pathological fracture (principal); E03.9 Hypothyroidism, unspecified
CPT/HCPCS: 82040; 82306; 82310; 82565; 96401; J0897

== ENCOUNTER → 2022-10-06 12:47 | Outpatient (BNVA) | payer MEDICARE, MEDICAID, SELFPAY | PROVIDERS: PCP Family Medicine; Visit Provider Internal Medicine | DX: M79.7 Fibromyalgia (principal); M54.9 Dorsalgia, unspecified; G89.29 Other chronic pain; M81.0 Age-related osteoporosis without current pathological fracture; G56.20 Lesion of ulnar nerve, unspecified upper limb; Z79.899 Other long term (current) drug therapy | CPT/HCPCS: 73030; 99214 ==

== ENCOUNTER → 2023-01-26 12:40 | Outpatient (BNVA) | payer MEDICARE, MEDICAID, SELFPAY | PROVIDERS: PCP Family Medicine; Visit Provider Internal Medicine | DX: M79.7 Fibromyalgia (principal); M54.9 Dorsalgia, unspecified; G89.29 Other chronic pain; M81.0 Age-related osteoporosis without current pathological fracture | CPT/HCPCS: 99214 ==

== ENCOUNTER 2023-03-03 13:40 | Oncology outpatient (recurring) (ONCR) | payer MEDICARE, MEDICAID, SELFPAY ==
[2023-03-03 13:53] VITALS: BP 127/81; PULSE 105; RESP 17; TEMP 36.8; O2SAT 93
[2023-03-03] MEDS: denosumab 60 mg SDV SUBCUT (14:06)
[2023-03-03 14:11] VITALS: BP 124/81; PULSE 103; RESP 18; TEMP 36.6; O2SAT 95
== END 2023-03-23 23:59 | disposition home or self-care (01) ==
LOC: ONCMED 13:41
PROVIDERS: PCP Family Medicine; Visit Provider Neurological Surgery
DX: M81.0 Age-related osteoporosis without current pathological fracture (principal)
CPT/HCPCS: 96401; J0897

== ENCOUNTER 2023-05-18 10:29 | Oncology outpatient (recurring) (ONCR) | payer MEDICARE, MEDICAID, SELFPAY ==
[2023-05-18 12:08] LABS: Basophils # 0.1 10^3/uL (0.0-0.1); Basophils % 0.7 %; Eosinophils # 0.4 10^3/uL (0.0-0.8); Eosinophils % 4.7 %; Hematocrit 43.6 % (36-47); Lymphocytes # 2.5 10^3/uL (0.8-4.8); Lymphocytes % 27.6 %; Mean Corpuscular HGB Conc 29.8 g/dL (30-55); Mean Corpuscular Hemoglobin 30.3 pg (27-33); Mean Corpuscular Volume 101.6 fl (85-98); Mean Platelet Volume 9.2 fL (7.4-10.4); Monocytes # 0.5 10^3/uL (0.2-0.9); Monocytes % 5.7 %; Neutrophils # 5.56 10^3/uL (1.8-7.7); Nucleated Red Blood Cells % 0 %; Platelet Count 273 10^3/cmm (157-399); Red Blood Count 4.29 10^6/uL (3.85-5.65); White Blood Count 9.12 10^3/uL (3.29-11.43)
[2023-05-18 12:27] LABS: Alanine Aminotransferase 9 U/L (0-33); Albumin Level 3.9 g/dL (3.5-5.2); Alkaline Phosphatase 70 U/L (35-105); Anion Gap 13.2 (5-19); Aspartate Amino Transferase 15 U/L (0-32); Blood Urea Nitrogen 17 mg/dL (8-23); Calcium 9.1 mg/dL (8.5-10.5); Carbon Dioxide 24 mmol/L (22-29); Chloride 107 mmol/L (98-107); Creatinine Clr Calc Pharmacy 42.9233; Globulin 3.6 g/dL (1.3-4.6); Glucose 88 mg/dL (65-115); Osmolality Calculated 291 mOsm/kg (285-295); Potassium 4.2 mmol/L (3.5-5.1); Sodium 140 mmol/L (136-145); Total Bilirubin 0.3 mg/dL (0.15-1.2); Total Protein 7.5 g/dL (6.6-8.7)
[2023-05-26 15:05] LABS: Serotonin Whole Blood 20 ng/mL (56-244)
== END 2023-05-22 23:59 | disposition home or self-care (01) ==
PROVIDERS: Internal Medicine Medical Oncology; PCP Family Medicine; Visit Provider Neurological Surgery
DX: C7A.012 Malignant carcinoid tumor of the ileum (principal); C7A.011 Malignant carcinoid tumor of the jejunum; C78.7 Secondary malignant neoplasm of liver and intrahepatic bile duct; C77.9 Secondary and unspecified malignant neoplasm of lymph node, unspecified; Z90.49 Acquired absence of other specified parts of digestive tract; Z79.890 Hormone replacement therapy
CPT/HCPCS: 36415; 80053; 84260; 85025; 86316; 99205

== ENCOUNTER 2023-05-20 13:24 | Outpatient (CLI) | payer MEDICARE, MEDICAID, SELFPAY ==
[2023-06-06 18:10] LABS: 24 Hour Urine Volume 550 mL; 5-HIAA, 24 Hour Urine 1.7 mg/24 h (< OR = 6.0)
== END 2023-05-20 13:25 | disposition home or self-care (01) ==
LOC: LAB 13:25
PROVIDERS: PCP Family Medicine; Visit Provider Internal Medicine Medical Oncology
DX: C7A.00 Malignant carcinoid tumor of unspecified site (principal)
CPT/HCPCS: 83497

== ENCOUNTER 2023-06-21 13:15 | Oncology outpatient (recurring) (ONCR) | payer MEDICARE, MEDICAID, SELFPAY ==
[2023-05-24] MEDS: LANREOTIDE 120 MG/0.5 ML SUBCUT (14:17)
[2023-05-24 14:47] VITALS: BP 131/88; PULSE 74; RESP 18; TEMP 36.8; O2SAT 93
[2023-06-08 13:52] LABS: Chromogranin A LC/MS/MS 4240 ng/mL (ADULTS: <311)
[2023-06-21] MEDS: LANREOTIDE 120 MG/0.5 ML SUBCUT (16:31)
[2023-06-21 16:37] VITALS: BP 118/79; PULSE 100; RESP 16; TEMP 36.3; O2SAT 94
== END 2023-06-21 23:59 | disposition home or self-care (01) ==
PROVIDERS: Internal Medicine Medical Oncology; PCP Family Medicine; Visit Provider Neurological Surgery
DX: C7A.019 Malignant carcinoid tumor of the small intestine, unspecified portion (principal); Z79.890 Hormone replacement therapy; Z79.899 Other long term (current) drug therapy
CPT/HCPCS: 36415; 80053; 85025; 86316; 99213; 99215; J1930

== ENCOUNTER 2023-07-03 19:13 | Inpatient (IN) | payer MEDICARE, MEDICAID, SELFPAY ==
[2023-07-03 19:14] VITALS: BP 174/80; PULSE 96; RESP 25; TEMP 36.9; O2SAT 85; BMI 19.1
--- NOTE | 2023-07-03 20:00 | XRR_ITS ---
PROCEDURE INFORMATION: Exam: XR Chest Exam date and time: 07/03/2023 8:32 PM Age: 77 years old Clinical indication: Patient HX: Weakness; AMS; Afib; Chf TECHNIQUE: Imaging protocol: Radiologic exam of the chest. Views: 1 view. COMPARISON: CR XR chest 1V portable [id number] 04/20/2020 9:32 PM FINDINGS: Lungs: Both lungs demonstrate chronic interstitial coarsening. No lung mass or infiltrate. Pleural spaces: Unremarkable. No pleural effusion. No pneumothorax. Heart/Mediastinum: Unremarkable. No cardiomegaly. Bones/joints: There is a subacute displaced fracture involving the right clavicle. No acute bony abnormality noted. XR/XR chest 1V portable [id number] IMPRESSION: No acute findings.
--- NOTE | 2023-07-03 20:02 | ECG_ITS ---
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 Measurements Intervals [place] Rate: 98 P: 68 MA: 150 QRS: -62 QRSD: 100 T: 114 QT: 340 QTc: 435 Interpretive Statements SINUS RHYTHM LEFT ANTERIOR FASCICULAR BLOCK [QRS AXIS <= -45, QR IN I, RS IN II] LEFT VENTRICULAR HYPERTROPHY AND ST-T CHANGE [VOLTAGE CRITERIA PLUS ST/T ABNORMALITY] Compared to ECG 04/21/2020 00:14:05 No significant changes Electronically Signed On 07-03-2023 22:31:19 CDT by Ritika Shen M.D. [email or web address]
[2023-07-03 20:12] LABS: Basophils % 0.3 %; Eosinophils # 0.4 10^3/uL (0.0-0.8); Eosinophils % 3.2 %; Hematocrit 39.3 % (36-47); Lymphocytes # 2.3 10^3/uL (0.8-4.8); Mean Corpuscular HGB Conc 30.5 g/dL (30-55); Mean Corpuscular Hemoglobin 30.1 pg (27-33); Mean Corpuscular Volume 98.5 fl (85-98); Mean Platelet Volume 9.6 fL (7.4-10.4); Monocytes # 0.8 10^3/uL (0.2-0.9); Monocytes % 5.5 %; Neutrophils # 9.96 10^3/uL (1.8-7.7); Neutrophils % 73.6 %; Nucleated Red Blood Cells % 0 %; Platelet Count 256 10^3/cmm (157-399); Red Blood Count 3.99 10^6/uL (3.85-5.65); Red Cell Distribution Width 12.4 % (12.1-15.1); White Blood Count 13.56 10^3/uL (3.29-11.43)
[2023-07-03 20:15] LABS: ABG PCO2 57.9 mmHg (35-45); Arterial Blood Gas Hematocrit 38.3 % (37-47); Base Excess ABG 0.9 mmol/L (-2.0-2.0); Blood Gas Allen Test Pos; Blood Gas Sample Site Radial, right; Blood Gas Sample Type Arterial; HCO3 ABG 28.4 mmol/L (22-26); Oxygen Device NC
[2023-07-03 20:20] VITALS: PULSE 78; RESP 14; O2SAT 95
[2023-07-03 20:24] LABS: Alanine Aminotransferase 7 U/L (0-33); Albumin Level 3.3 g/dL (3.5-5.2); Alkaline Phosphatase 74 U/L (35-105); Aspartate Amino Transferase 17 U/L (0-32); Blood Urea Nitrogen 18 mg/dL (8-23); C Reactive Protein 16.9 mg/L (0.0-4.9); Calcium 8.3 mg/dL (8.5-10.5); Carbon Dioxide 28 mmol/L (22-29); Chloride 106 mmol/L (98-107); Creatinine Clr Calc Pharmacy 30.4808; Globulin 3.6 g/dL (1.3-4.6); Glucose 97 mg/dL (65-115); Osmolality Calculated 298 mOsm/kg (285-295); Sodium 143 mmol/L (136-145); Total Bilirubin 0.2 mg/dL (0.15-1.2); Total Protein 6.9 g/dL (6.6-8.7)
[2023-07-03 20:25] VITALS: BP 167/92; PULSE 93; RESP 28; O2SAT 96
[2023-07-03 20:27] LABS: Anion Gap 13.5 (5-19); Potassium 4.5 mmol/L (3.5-5.1)
[2023-07-03] MEDS: sodium chloride 0.9% 1,000 ML 999 ML IV (20:34)
--- NOTE | 2023-07-03 20:43 | ED_ITS ---
HPI - Altered Mental Status 2 General: Chief Complaint: Altered Mental Status Stated Complaint: WEAKNESS/AMS Time Seen by Provider: 07/03/23 19:20 History of Present Illness: 77-year-old female with a history of col on cancer. She gets injections for cancer therapy. She had been told that on week 2 or so after the injection, she would get weak and have problems. This is the beginning of week 3. She has been increasingly weak at home for the last 3 days or so. Mentally, she seems pretty with it according to her daughter, and is near her baseline, but has not been able to get out of bed much at all. She has not been able to eat, and has not drink much fluid. The concern was for dehydration. She has also developed a cough, and has been short of breath the last couple of days. She usually only wears oxygen at night. Review of Systems 2 Const: Reports: fatigue; Denies: fever(s), chills or body aches Eyes: Denies: change in vision Card: Denies: chest pain or palpitations Resp: Reports: dyspnea and non-productive cough GI: Reports: abdominal pain, nausea and vomiting (Today) : Denies: flank pain Musc: Reports: back pain PFSH ED 2 PFSH: Medical History (Updated 07/03/23 @ 23:02 by Robin Headley DO) Malignant carcinoid tumor Osteoporosis TIA (transient ischemic attack) DVT (deep venous thrombosis) CHF (congestive heart failure) COPD (chronic obstructive pulmonary disease) Oxygen dependent Hypothyroidism Hypertension Hyperlipidemia Fibromyalgia Chronic back pain Paroxysmal atrial fibrillation Surgical History History of repair of rotator cuff H/O bilateral cataract extraction History of cholecystectomy History of resection of small bowel (01/26/21) Diagnostic laparoscopy converted to exploratory laparotomy with partial small bowel resection Family History Father Heart disease Mother Diabetes Brother Heart disease Sister Diabetes Other Family history non-contributory Social History Smoking and tobacco/nicotine status: current some day tobacco/nicotine user cigarettes [ Other cigarette details: She had previously smoked 1 PPD, currently 1/2 packs/week.] Second hand smoke exposure: No Alcohol intake: former Former alcohol use details: She has had use in the past, but never heavy. Substance/Drug Use: never Adopted: No Caregiver/support person: Yes Lives independently: Yes Housing: Apartment Marital status: Unknown Number of children: 2 Number of grandchildren: 4 Current occupational status: retired Physical Exam 2 Const: GENERAL APPEARANCE: cooperative, ill appearing and frail appearing HENMT: COMMON NORMALS: normocephalic and atraumatic HEAD & SCALP: n ormocephalic and atraumatic FACE & SINUS: normal facial exam and face symmetric Eye: COMMON NORMALS: Equal, round and reactive pupils present and EOMs intact bilaterally SCLERA: sclerae normal PUPIL: Yes Equal, round and reactive pupils present Chest: CHEST: Yes Symmetrical chest wall rise Resp: COMMON NORMALS: normal respiratory effort, No use of accessory muscles and clear to auscultation bilaterally AUSCULTATION: clear to auscultation bilaterally Cardio: COMMON NORMALS: regular rate and regular rhythm RATE: regular rate RHYTHM: regular rhythm GI: COMMON NORMALS: Soft to palpation PALPATION: Yes Soft to palpation Extremity: COMMON NORMALS: no pedal edema Course 2 Vital Signs: Vital signs: Vital Signs Temperature 98.4 F 07/03/23 19:14 Pulse Rate 89 07/03/23 22:30 Respiratory Rate 18 07/03/23 22:30 Blood Pressure 137/102 07/03/23 21:55 Pulse Oximetry 98 07/03/23 22:30 Oxygen Delivery Me thod Nasal Cannula 07/03/23 22:30 Oxygen Flow Rate 2 07/03/23 22:30 Fraction of Inspir ed Oxygen 30 07/03/23 20:20 MDM - Altered Mental Status Medical Decision Making Patient is awake and alert. She answers questions appropriately. She is however quite weak. Blood gas shows a pH of 7.3, with an elevated pCO2. She is placed on BiPAP. Lactic acid is 1. White blood cell count is 13.6. Creatinine is 1.1. X-ray does not show new infiltrate. She will be admitted for hypercapnic respiratory failure with generalized weakness. Lab Data 07/03/23 19:50 07/03/23 19:50 Radiology Impressions Chest X-Ray 07/03/23 20:00 IMPRESSION: No acute findings. Laboratory Results WBC 13.56 10^3/uL (3.29-11.43) H 07/03/23 19:50 RBC 3.99 10^6/uL (3.85-5.65) 07/03/23 19:50 Hgb 12.00 g/dL (11.27-16.99) 07/03/23 19:50 Hct 39.3 % (36-47) 07/03/23 19:50 MCV 98.5 fl (85-98) H 07/03/23 19:50 MCH 30.1 pg (27-33) 07/03/23 19:50 MCHC 30.5 g/dL (30-55) 07/03/23 19:50 RDW 12.4 % (12.1-15.1) 07/03/23 19:50 Plt Count 256 10^3/cmm (157-399) 07/03/23 19:50 MPV 9.6 fL (7.4-10.4) 07/03/23 19:50 Neut % (Auto) 73.6 % 07/03/23 19:50 Lymph % (Auto) 17.0 % 07/03/23 19:50 [place] % (Auto) 5.5 % 07/03/23 19:50 Eos % (Auto) 3.2 % 07/03/23 19:50 Baso % (Auto) 0.3 % 07/03/23 19:50 Neut # (Auto) 9.96 10^3/uL (1.8-7.7) H 07/03/23 19:50 Lymph # (Auto) 2.3 10^3/uL (0.8-4.8) 07/03/23 19:50 [place] # (Auto) 0.8 10^3/uL (0.2-0.9) 07/03/23 19:50 Eos # (Auto) 0.4 10^3/uL (0.0-0.8) 07/03/23 19:50 Baso # (Auto) 0.0 10^3/uL (0.0-0.1) 07/03/23 19:50 Nucleated RBC % (auto) 0 % 07/03/23 19:50 Nucleated RBCs # 0.0 /100WBC 07/03/23 19:50 Specimen Type Arterial 07/03/23 20:05 Sample Site Radial, right 07/03/23 20:05 ABG pH 7.30 (7.35-7.45) L 07/03/23 20:05 ABG pCO2 57.9 mmHg (35-45) H 07/03/23 20:05 ABG pO2 113.0 mmHg (80.0-100.0) H 07/03/23 20:05 ABG HCO3 28.4 mmol/L (22-26) H 07/03/23 20:05 ABG Base Excess 0.9 mmol/L (-2.0-2.0) 07/03/23 20:05 [place] Test Pos 07/03/23 20:05 Hematocrit 38.3 % (37-47) 07/03/23 20:05 O2 Delivery Device Nc 07/03/23 20:05 O2 Liters/Min 4.0 % 07/03/23 20:05 Field Crew Chief ID [email or web address] 07/03/23 20:05 Sodium 143 mmol/L (136-145) 07/03/23 19:50 Potassium 4.5 mmol/L (3.5-5.1) 07/03/23 19:50 Chloride 106 mmol/L (98-107) 07/03/23 19:50 Carbon Dioxide 28 mmol/L (22-29) 07/03/23 19:50 Anion Gap 13.5 (5-19) 07/03/23 19:50 BUN 18 mg/dL (8-23) 07/03/23 19:50 Creatinine 1.1 mg/dL (0.5-0.9) H 07/03/23 19:50 GFR Calculation Not Reportable 07/03/23 19:50 Glucose 97 mg/dL (65-115) 07/03/23 19:50 Calculated Osmolality 298 mOsm/kg (285-295) H 07/03/23 19:50 Lactic Acid 1.0 mmol/L (0.5-2.2) 07/03/23 19:50 Calcium 8.3 mg/dL (8.5-10.5) L 07/03/23 19:50 Total Bilirubin 0.2 mg/dL (0.15-1.2) 07/03/23 19:50 AST 17 U/L (0-32) 07/03/23 19:50 ALT 7 U/L (0-33) 07/03/23 19:50 Alkaline Phosphatase 74 U/L (35-105) 07/03/23 19:50 C-Reactive Protein 16.9 mg/L (0.0-4.9) H 07/03/23 19:50 Total Protein 6.9 g/dL (6.6-8.7) 07/03/23 19:50 Albumin 3.3 g/dL (3.5-5.2) L 07/03/23 19:50 Globulin 3.6 g/dL (1.3-4.6) 07/03/23 19:50 All radiology interpretation(s) finalized by discharge Discharge Plan Discharge Patient Disposition: Admitted As Inpatient Admit Provider: Raul Murcia Clinical Impression: Acute and chronic respiratory failure with hypoxia, 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
[2023-07-03] MEDS: ondansetron 2 mg/ML SDV 2 mL 4 MG IVP (20:59)
[2023-07-03] MEDS: methylPREDNISolone sod succ 125 mg/2 mL INJ 80 MG IVP (20:59)
[2023-07-03 21:55] VITALS: BP 137/102; PULSE 99; O2SAT 96
[2023-07-03 22:30] VITALS: PULSE 89; RESP 18; O2SAT 98
[2023-07-03] MEDS: ipratropium-albuterol 3 mL Neb INHALATION (22:30)
--- NOTE | 2023-07-03 22:49 | P.HP_ITS ---
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 due to fatigue, malaise, poor appetite, concerns for breakthrough seizures, increased drowsiness, and at times difficult to arouse. Currently patient is alert oriented x 3, following all commands, daughter is at bedside, she was on BiPAP therapy for hypercarbic respiratory failure, her mentation is significantly improved currently on nasal cannula. Patient's tells me that she received lanreotide, a few weeks ago, since then she has had a poor appetite, increased fatigue, malaise, she tells me that for the last 3 days she has been having tremors, concerns for breakthrough seizures typically she tells me that when she feels that it is coming on, she goes to sleep and typically they go away, she is on Keppra, she is not exactly sure why she takes that it might be from seizures but she is not exactly clear but she has been using her medications as prescribed, she is also on gabapentin, denies any fevers, no chills, no headache, blurry vision. She does report a fall a few days ago she slid out of her chair she thinks she hit her head during that time, denies any loss of consciousness. She does report at times increased shortness of breath, denies a history of sleep apnea, here she was found to have hypercarbic respiratory failure with elevated pCO2 with her complaints of feeling fatigue, malaise, and drowsiness reported by family members, at times difficult to arouse, she was placed on BiPAP with improvement of her mentation. Family tells me that for the last few days she has had increased drowsiness at times difficult to arouse she can feed due to her difficulty in arousing Review of Systems 2 Const: Reports: fatigue and malaise; Denies: fever(s) Card: Denies: chest pain Resp: Reports: dyspnea GI: Denies: abdominal pain : Denies: flank pain or difficulty voiding Musc: Denies: neck pain or back pain Neuro: Denies: headache(s) Medications/Allergies Home Medications Medication Instructions Recorded Confirmed Last Taken Type aspirin 81 mg tablet,delayed 81 mg PO DAILY 02/22/19 06/21/23 Unknown History release (Ecotrin Low Strength) atorvastatin 10 mg tablet (Lipitor) 10 mg PO BEDTIME 02/22/19 06/21/23 Unknown History baclofen 10 mg tablet 10 mg PO Q6H 02/22/19 06/21/23 Unknown History digoxin 125 mcg (0.125 mg) tablet 125 mcg PO DAILY 02/22/19 06/21/23 Unknown History (Digox) diltiazem HCl 30 mg tablet 30 mg PO BID 02/22/19 06/21/23 Unknown History (Cardizem) montelukast 10 mg tablet 10 mg PO DAILY 02/22/19 06/21/23 Unknown History (Singulair) ascorbic acid (vitamin C) 500 mg 500 mg PO DAILY 04/21/20 06/21/23 Unknown History tablet (Vitamin C) cyanocobalamin (vitamin B-12) 1,000 mcg PO DAILY 04/21/20 06/21/23 Unknown History 1,000 mcg tablet (Vitamin B-12) iron, carbonyl 65 mg tablet 65 mg PO DAILY 04/21/20 06/21/23 Unknown History naloxone 4 mg/actuation nasal See Rx Instructions .Route .COMPLEX 04/21/20 06/21/23 Unknown History spray (Narcan) omeprazole 20 mg capsule,delayed 20 mg PO DAILY 04/21/20 06/21/23 Unknown History release ondansetron HCl 4 mg tablet 4 mg PO Q8H PRN Nausea 04/21/20 06/21/23 Unknown History (Zofran) potassium chloride 10 mEq 10 meq PO DAILY 04/21/20 06/21/23 Unknown History tablet,extended release apixaban 2.5 mg tablet (Eliquis) 2.5 mg PO BID 09/30/21 06/21/23 Unknown History cholecalciferol (vitamin D3) 1,250 50,000 unit PO .qweek #14 caps 01/26/23 06/21/23 Unknown Rx mcg (50,000 unit) capsule gabapentin 100 mg capsule 100 mg PO Q8H #90 caps 01/31/23 06/21/23 Unknown Rx alendronate 70 mg/75 mL oral 70 mg PO ONCE 05/24/23 06/21/23 Unknown History solution buspirone 15 mg tablet 15 mg PO BID 05/24/23 06/21/23 Unknown History fluoxetine 40 mg capsule 40 mg PO DAILY 05/24/23 06/21/23 Unknown History glucose monitor #1 ea 05/24/23 06/21/23 Unknown Rx glucose test strips #50 ea 05/24/23 06/21/23 Unknown Rx lancets #1 ea 05/24/23 06/21/23 Unknown Rx levetiracetam 500 mg tablet 500 mg PO BID 05/24/23 06/21/23 Unknown History (Keppra) levothyroxine 88 mcg capsule 88 mcg PO DAILY 05/24/23 06/21/23 Unknown History mirtazapine 7.5 mg tablet 7.5 mg PO DAILY 05/24/23 06/21/23 Unknown History oxycodone 10 mg tablet 10 mg PO Q4H PRN 05/24/23 06/21/23 Unknown History oxycodone 20 mg tablet,crush 20 mg PO BID 05/24/23 06/21/23 Unknown History resistant,extended release 12 hr (OxyContin) trazodone 100 mg tablet 100 mg PO DAILY 05/24/23 06/21/23 Unknown History biotin 10,000 mcg capsule mcg PO DAILY 06/21/23 06/21/23 Unknown History vitamin B complex 1 tab PO DAILY 06/21/23 06/21/23 Unknown History Allergies Allergy/AdvReac Type Severity Reaction Status Date / Time celecoxib [From Celebrex] Allergy Intermediate Hives Verified 07/03/23 19:26 Sulfa (Sulfonamide Allergy Intermediate hives Verified 07/03/23 19:26 Antibiotics) PFSH Acute 2 PFSH: Medical History (Updated 07/03/23 @ 22:57 by Raul Murcia MD) Malignant carcinoid tumor Osteoporosis TIA (transient ischemic attack) DVT (deep venous thrombosis) CHF (congestive heart failure) COPD (chronic obstructive pulmonary disease) Oxygen dependent Hypothyroidism Hypertension Hyperlipidemia Fibromyalgia Chronic back pain Paroxysmal atrial fibrillation Surgical History History of repair of rotator cuff H/O bilateral cataract extraction History of cholecystectomy History of resection of small bowel (01/26/21) Diagnostic laparoscopy converted to exploratory laparotomy with partial small bowel resection Family History Father Heart disease Mother Diabetes Brother Heart disease Sister Diabetes Other Family history non-contributory Social History Smoking and tobacco/nicotine status: current some day tobacco/nicotine user cigarettes [ Other cigarette details: She had previously smoked 1 PPD, currently 1/2 packs/week.] Second hand smoke exposure: No Alcohol intake: former Former alcohol use details: She has had use in the past, but never heavy. Substance/Drug Use: never Adopted: No Caregiver/support person: Yes Lives independently: Yes Housing: Apartment Marital status: Unknown Number of children: 2 Number of grandchildren: 4 Current occupational status: retired Vitals/I&O/Wt Last Vital Signs Temp 98.4 F 07/03/23 19:14 Pulse 99 07/03/23 21:55 Resp 28 H 07/03/23 20:25 BP 137/102 07/03/23 21:55 Pulse Ox 96 07/03/23 21:55 O2 Del Method BiPAP 07/03/23 20:25 FiO2 30 07/03/23 20:20 Weight last 48 hrs Weight 44.452 kg Physical Exam 2 Const: COMMON NORMALS: no acute distress and patient oriented x3 OTHER: Cancer cachexia, bilateral temporal muscle wasting, loss of fat pad under bilateral clavicles bilateral ribs, muscle wasting of bilateral thighs, bilateral calves bilateral arms, HENMT: COMMON NORMALS: normocephalic HEAD & SCALP: normocephalic Eye: COMMON NORMALS: Equal, round and reactive pupils present and EOMs intact bilaterally Neck/C-Spine: COMMON NORMALS: no JVD Resp: COMMON NORMALS: normal respiratory effort, No retractions, No use of accessory muscles and clear to auscultation bilaterally AUSCULTATION: clear to auscultation bilaterally Cardio: COMMON NORMALS: no JVD, regular rate, regular rhythm, S1 normal heart sound present and S2 normal heart sound present RATE: regular rate RHYTHM: regular rhythm HEART SOUNDS: S1 normal heart sound present and S2 normal heart sound present GI: COMMON NORMALS: Normal to inspection, nondistended, normoactive bowel sounds present, Soft to palpation, non-tender and no bruits PALPATION: Yes Soft to palpation and Yes No hepatosplenomegaly present Extremity: COMMON NORMALS: no calf tenderness and no pedal edema Neuro: COMMON NORMALS: patient oriented x3, CN's II-XII intact bilaterally and moves all extremities Psych: COMMON NORMALS: mental status grossly normal Data 07/03/23 19:50 07/03/23 19:50 A&P Assessment and plan (1) Breakthrough seizure: (2) Dehydration: (3) Hypercapnic respiratory failure: (4) COPD (chronic obstructive pulmonary disease): (5) COPD exacerbation: (6) Acute encephalopathy: (7) Cancer cachexia: (8) Protein calorie malnutrition: (9) Physical deconditioning: Plan Breakthrough seizures? Possible etiology behind her drowsiness, That she denies a history of seizures but is on Keppra 500 mg twice daily? ? Increase Keppra to 1000 mg twice daily next ?seizure precautions ? CT of the head Falls ? PT OT ? CT of the head Atrial fibrillation ? Check digoxin levels ? Continue Eliquis Dehydration ? 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 Currently on lanreotide Acute hypercapnic respiratory failure ? Associate with increased drowsiness, likely secondary hypercapnia ? Secondary to COPD exacerbation ? Continue Solu-Medrol ? BiPAP therapy scheduled during the night ? DuoNeb ? Budesonide Hypothyroidism check TSH continue levothyroxine Cancer pain ? Continue home oxycodone 20 mg twice daily ? Oxycodone 5 mg every 4 hours as needed Cancer cachexia protein calorie malnutrition, physical deconditioning, BMI 19 Secondary to underlying neuroendocrine tumor ? PT OT ? Dietary eval ? Start protein shake supplementation Fatigue, malaise ? Likely secondary to underlying cancer ? Check TSH, check digoxin levels ? Await UA Await UA Full code Eliquis for DVT prophylaxis Attestations 2 Medical Necessity Statement*: Patient requires hospitalization, inpatient, greater than 2 midnights, for breakthrough seizures, falls, dehydration, acute hypercapnic respiratory failure, Diagnoses Breakthrough seizure G40.919 Dehydration E86.0 Hypercapnic respiratory failure J96.92 COPD (chronic obstructive pulmonary disease) J44.9 COPD exacerbation J44.1 Acute encephalopathy G93.40 Cancer cachexia R64 Protein calorie malnutrition E46 Physical deconditioning R53.81
[2023-07-03 23:07] VITALS: BP 109/79; PULSE 83; RESP 22; O2SAT 95
--- NOTE | 2023-07-03 23:36 | CTR_ITS ---
PROCEDURE INFORMATION: Exam: CT Head Without Contrast Exam date and time: 07/04/2023 12:11 AM Age: 77 years old Clinical indication: Injury or trauma; Fall; Blunt trauma (contusions or hematomas); Patient HX: Patient states she fell a few days ago out of a chair. Does not remember if she struck her head. History of TIA. TECHNIQUE: Imaging protocol: Computed tomography of the head without contrast. Radiation optimization: All CT scans at this facility use at least one of these dose optimization techniques: automated exposure control; mA and/or kV adjustment per patient size (includes targeted exams where dose is matched to clinical indication); or iterative reconstruction. COMPARISON: CT head wo con* [id number] 04/21/2020 2:03 AM RADIATION DOSE METRICS: Total DLP (mGy-cm): 1093.38 FINDINGS: Brain: Prominent diffuse cerebral atrophy is noted. There is a small old infarct involving the right parieto-occipital lobe region. No evidence of acute hemorrhage, mass effect or infarct. Cerebral ventricles: No ventriculomegaly. No midline shift. Paranasal sinuses: Visualized sinuses are unremarkable. No fluid levels. Mastoid air cells: Visualized mastoid air cells are well aerated. Bones: Unremarkable. No acute fracture. Soft tissues: Unremarkable. CT/CT head wo con* [id number] IMPRESSION: 1. No acute findings. 2. Cerebral atrophy 3. 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
[2023-07-03 23:46] VITALS: BMI 20.1
[2023-07-03 23:47] LABS: Troponin(5th) Baseline 22 ng/L (0-10)
[2023-07-03 23:59] LABS: Estmated Average Glucose 91; Hemoglobin A1C 4.8 % (4.0-6.0)
[2023-07-04] VITALS (17 sets, daily range): BP systolic 115–146; BP diastolic 64–72; PULSE 56–701; RESP 15–18; TEMP 36.6–37; O2SAT 94–100
[2023-07-04 00:05] LABS: Add Urine Culture? Yes; Add Urine Microscopic? YES; Bilirubin Urine Neg (Negative); Blood Urine Neg (Negative); Glucose Urine UA Norm (Normal); Ketones Urine 1+ (Negative); Leukocyte Esterase Urine 1+ (Negative); Mucus Urine 1+ /hpf; Nitrate Urine Negative (Negative); Protein Urine Neg (Negative); RBC Urine 0-4 /hpf (0-2); Urine Appearance SL Hazy (CLEAR); Urine Color Yellow (Yellow); Urobilinogen Urine Neg (Negative); WBC Urine 25-40 /hpf (0-5); pH Urine 5 (5-7)
[2023-07-04 00:05] LABS: Chol HDL Ratio 2.57 mg/dL (0.0-4.40); Cholesterol 113 mg/dL (0-200); Creatine Phosphokinase 25 U/L (26-192); HDL Cholesterol 44 mg/dL (60-100); LDL Cholesterol Calculated 47 mg/dL (50-129); LDL HDL Ratio 1.07 RATIO (0.00-3.22); Triglycerides 112 mg/dL (0-150)
[2023-07-04 00:06] LABS: Bacteria Urine 2+ /hpf
[2023-07-04 00:19] LABS: Digoxin 1.5 ng/mL (0.6-1.2)
[2023-07-04] MEDS: gabapentin 100 mg Capsule PO ×3 (00:36→15:36)
[2023-07-04] MEDS: sodium chloride 0.9% 1,000 ML 75 ML IV ×2 (00:36→15:36)
[2023-07-04] MEDS: pantoprazole 40 mg SDV IVP (00:36)
[2023-07-04] MEDS: levETIRAcetam 500 mg Tablet 1000 MG PO ×2 (00:36→11:09)
--- OUTSIDE RECORDS SUMMARY | 2023-07-04 00:41 | XMS_ITS | Patient Health Record ---
Author Name Unknown Organization [facility] Address [address] [place], [place] [id number] Care Team Providers Care Farmer [employer] Name Role Phone Darryl TYLER, Roderick Primary Care Provider Rochelle Euceda MD, Matt Unavailable [phone] Randi Augustine Unavailable [phone] ALLERGIES Allergen (clinical drug ingredient) Drug/Non Drug Allergy documented on EMR Reaction Allergy Type Onset Date Status sulfa (uncoded) Unknown Allergy Acti ve Keflex Unknown Drug Allergy Active ciprofloxacin ciprofloxacin Unknown Drug Allergy Active celecoxib Celebrex Unknown Drug Allergy Active RESULTS Component Value Reference Range Notes Embedded PDF Reviewed date:01/10/2023 09:55:40 AM Interpretation: Performing Lab: Notes/Report: ab Director: Megan Zapata MD, CLIA ID# [id number] [employer], [address] [address] [employer], [address] [address], , L [employer] Results Reviewed date:01/10/2023 09:55:28 AM Interpretation: Performing Lab:[id number] [employer], [address] [address] [facility] [address] Megan Zapata MD Notes/Report: [employer], [address] [address] [employer], [address] [address], , L ab Director: Megan Zapata MD, CLIA ID# [id number] Codeine negative 1 ng/mL Morphine negative 1 ng/mL Hydrocodone negative 1 ng/mL Norhydrocodone Quantification negative 2 ng/mL Hydromorphone negative 1 ng/mL Oxycodone positive-566.635 1 ng/mL Noroxycodone Quantification positive-75.312 2 ng/mL Oxymorphone negative 1 ng/mL Buprenorphine Quantification negative 1 ng/mL Norbuprenorphine Quantification negative 2 ng/mL Fentanyl Quantification negative 0.2 ng/mL Norfentanyl Quantification negative 1 ng/mL Meperidine Quantification negative 1 ng/mL Normeperidine Quantification negative 2 ng/mL Methadone negative 2 ng/mL EDDP (Methadone metabolite) negative 2 ng/mL Tapentadol Quantification negative 5 ng/mL Tramadol Quantification negative 5 ng/mL E-Pxkernszs-Hspcxvmb Quantification negative 5 ng/ mL Alprazolam negative 1 ng/mL Clonazepam negative 1 ng/mL Clonazepam Metabolite Quantification negative 1 ng /mL Diazepam negative 1 ng/mL Nordiazepam negative 1 ng/mL Lorazepam negative 1 ng/mL Oxazepam negative 2 ng/mL Temazepam negative 1 ng/mL Amphetamine negative 5 ng/mL Methylphenidate Quantification negative 1 Ritalinic Acid Quantification negative 1 Carisoprodol Quantification negative 5 ng/mL Meprobamate Quantification negative 5 ng/mL Levorphanol / Dextrorphan Quantification negative 1 ng/mL Gabapentin Quantification negative 10 ng/mL Naltrexone Quantification negative 1 ng/mL Naltrexol (Naltrexone metabo lite) Quantification negative 1 ng/mL Pregabalin Quantification negative 5 ng/mL Sertraline Quantification negative 1 ng/mL Zolpidem Quantification negative 1 Methamphetamine negative 5 ng/mL Cocaine Quantification negative 2 ng/mL Cocaine Metabolite negative 2 ng/mL THC (Marijuana Component) negative 2 ng/mL MDMA negative 5 ng/mL 6-ANTHONY (Heroin metabolite) Quantification negative 1 ng/mL Phencyclidine negative 1 ng/mL Saliva Swab Toxicology Lebrone n Reviewed date:01/10/2023 09:56:19 AM Interpretation:Consistent Performing Lab: Notes/Report: Consistent REASON FOR REFERRAL No Information MEDICATIONS Medication SIG (Take, Route, Frequency, Duration) Notes Start Date End Date Status lanreotide 120 mg/0.5 mL as directed subcutaneously every 4 weeks for 4 week(s) Active PROzac 40 mg 1 cap orally once a day for 30 day(s) Active albuterol 2.5 mg/3 mL (0.083%) 3 mL inhaled every 6 hours for 30 day(s) Active Singulair 10 mg 1 tab orally once a day (in the evening) for 30 day(s) Active OxyCONTIN 20 mg 1 tab orally Q12H fo r 28 days Do not fill prior to 06/14/23. ICD-10: G89.29 06/07/2023 Active baclofen 10 mg 1 tab orally 4 times a day for 30 day(s) Active Synthroid 125 mcg (0.125 mg) 1/2 tab orally once a day for 30 day(s) Active OxyCONTIN 20 mg 1 tab orally Q12H fo r 28 days Do not fill prior to 07/12/23. ICD-10: G89.29 06/07/2023 Active benzonatate 100 mg 1 cap orally 3 times a day Active predniSONE 5 mg 1-2 tabs orally once a day Active Promethazine DM 15 mg-6.25 mg/5 mL 5 mL orally every 6 hours Active metoprolol 50 mg 2 1/2 tabs orally da mauricio as directed for 30 day(s) Active Movantik 12.5 mg 1 tab orally once a day (in the morning) 03/03/2021 Active omeprazole 20 mg 1 tab orally once a day for 14 day(s) Active Bumex Active gabapentin 100 mg 1 cap 4 times a day Active Iron Sulfate 325 mg 1 tab bid Active Lanoxin 125 mcg (0.125 mg) 1 tab orally once a day for 30 day(s) Active Lipitor 10 mg 1 tab orally once a day (at bedtime) for 30 day(s) Active Cozaar 100 mg 1 tab orally once a day for 30 day(s) Active divalproex sodium 500 mg 1 tab orally once a day Acti ve docusate sodium 100 mg 1 cap orally 2 times a day for 30 day(s) Active Eliquis 2.5 mg 1 tab orally 2 times a day Active Vitamin B-12 1000 mcg 1 tab orally once a day for 30 day(s) Active oxyCODONE 10 mg 1/2 - 1 tab orally Q4-6H prn pain (max 3 per day; hold within 4H of planned sleep) for 28 days Do not fill prior to 06/14/23. ICD-10: G89.29 06/07/2023 Active Vitamin C 1 tab orally once a day for 30 day(s) Active oxyCODONE 10 mg 1/2 - 1 tab orally Q4-6H prn pain (max 3 per day; hold within 4H of planned sleep) for 28 days Do not fill prior to 07/12/23. ICD-10: G89.29 06/07/2023 Active Cardizem SR Active Vitamin D3 1 tab orally once a day for 30 day(s) Active Claritin 10 mg 1 tab orally once a day for 30 day(s) Active Xopenex 1.25 mg/3 mL 3 mL by nebulizer a s directed for 30 day(s) Active SOCIAL HISTORY Tobacco Use: Social History Observation Description Date Details (start date - stop date) Current Smoker NA - NA Sex Assigned At : Social History Observation Description Sex Assigned At Unknown alcohol Question Answer Notes Did you have a drink containing alcohol in the p ast year? No Points 0 Interpretation Negative Tobacco use: Question Answer Notes : current smoker Are you interested in quitting? Thinking about q uitting How many cigarettes a day do you smoke? 5 or les s How often do you smoke cigarettes? every day How soon after you wake up d o you smoke your first cigarette? 31-60 min When did you start smoking? 1986 PROBLEMS Problem Type ICD Code Onset Dates Problem Status W/U Status Risk SNOMED Code Notes Problem Dysfunctions associated with sleep stages or arousal from sleep (780.56) Active confirmed Sleep dysfunction with sleep stage disturbance (597274830) Problem Low back pain (724.2) Active confirmed Low back pain (521275716) Problem Lumbar (w/out myelopathy) intervertebral disc disorder (722.10) Active confirmed Displacement of lumbar intervertebral disc without myelopathy (87527487) Problem LONG-TERM USE MEDS NEC (V58.69) Active confirmed Long-term drug therapy (854237554) R/O substance abuse Problem Anxiety State, other, specified: procedure related (300.09) Active confirmed Anxiety sta te (413153067) Problem Lumbar spinal stenosis (724.02) Active confirmed Lumbar spinal stenosis (51688133) Problem Lumbosacral spondylosis without myelopathy (721.3) Active confirmed Lumbosacral spondylosis without myelopathy (75996012) Problem Sacroiliitis (720.2) Active confirmed Solitary sacroiliitis (715369198) Problem Sacroiliitis, not elsewhere classified (M46.1) Active confirmed Solitary sacroiliitis (876090919) Problem Low back pain (M54.5) Active confirmed Low back pain (570921531) Problem Spondylosis without myelopathy or radiculopathy, lumbar region (M47.816) Active confirmed Lumbosacral spondylosis without myelopathy (83179552) Problem assistant terminal manager (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) use of opiate analgesic (Z79.891) Active confirmed High risk drug monitoring status (544784837) Problem Other sleep disorders (G47.8) Active confirmed Sleep disorder (46085286) Problem Other chronic pain (G89.29) Active confirmed Chronic pain (90135873) Problem Spinal stenosis, lumbar region (M48.06) Active confirmed Spinal stenosis of lumbar region (47679744) Problem Intervertebral disc disorders with radiculopathy, lumbar region (M51.16) Active confirmed Radiculopathy due to lumbar intervertebral disc disorder (545326428852654 ) Problem Spinal stenosis, lumbar region without neurogenic claudication (M48.061) Active confirmed Spinal stenosis of lumbar region (38532353) Problem Myalgia, other site (M79.18) Active confirmed Muscle pain (76309518) Problem Vertebrogenic low back pain (M54.51) Active confirmed Pain in lumbar spine (995413647) VITAL SIGNS Temperature 94.2 degrees Fahrenheit 06/07/2023 Orquidea ent reported weight due to fall risk Blood pressure diastolic 65 mm Hg 06/07/2023 Pat ient reported weight due to fall risk Oximetry 88 % 06/07/2023 Patient reporte d weight due to fall risk Height 61 in 06/07/2023 Patient reporte d weight due to fall risk Blood pressure systolic 142 mm Hg 06/07/2023 Orquidea ent reported weight due to fall risk Weight 100 lbs 06/07/2023 Patient reporte d weight due to fall risk BMI 18.89 kg/m2 06/07/2023 Patient reporte d weight due to fall risk Encounters Encounter Location Date [facility] [place] [address] [place], [place] [id number] 10/06/2022 Randi Sanches Vertebrogenic low ba ck pain M54.51 ; Other chronic pain G89.29 ; Other sleep disorders G47.8 and half-way (current) use of opiate analgesic Z79.891 [facility] [place] [address] [address] [place], [place] [id number] 10/18/2022 Matt Euceda [facility] [address] [place], [place] [id number] 01/05/2023 Randi Sanches Vertebrogenic low ba ck pain M54.51 ; Other chronic pain G89.29 and assistant terminal manager (current) use of opiate analgesic Z79.891 [facility] [address] [place], [place] [id number] 02/09/2023 Matt Vilchischristy [facility], [facility] [address] [place], [place] [id number] 04/12/2023 Randi Sanches Vertebrogenic low ba ck pain M54.51 ; Other chronic pain G89.29 ; Other sleep disorders G47.8 and half-way (current) use of opiate analgesic Z79.891 [facility] [address] [place], [place] [id number] 06/07/2023 Randi Sanches Vertebrogenic low ba ck pain M54.51 ; Other chronic pain G89.29 ; Other sleep disorders G47.8 and assistant terminal manager (current) use of opiate analgesic Z79.891 ASSESSMENTS Encounter Date Diagnosis Assessment Notes Treatment Notes Treatment Clinical Notes 01/05/2023 Vertebrogenic low back pain (ICD-10 - M54.51) Chronic axial lumbosacral spine pain. 06/07/2023 Vertebrogenic low back pain (ICD-10 - M54.51) Chronic axial lumbosacral spine pain. 04/12/2023 Vertebrogenic low back pain (ICD-10 - M54.51) Chronic axial lumbosacral spine pain. 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 Plan to continue oral opioid medication management with slow opioid taper 10/06/2022 Vertebrogenic low back pain (ICD-10 - M54.51) Chronic axial lumbosacral spine pain 10/06/2022 Other sleep disorders (ICD-10 - G47.8) Patient has been counseled on the risks of sleep apnea (if present), with or without opioid and / or other sedative usage, and the patient verbalized understanding and acceptance of the increased risk (sleep apnea, respiratory depression, ) with opioid and / or sedative substance usage. She is not interested in completing a sleep study. She cites too many other medical issues and doctors appointments she is required to do 04/12/2023 Other sleep disorders (ICD-10 - G47.8) Patient has history of a sleep disorder with mild nocturnal hypoxemia. Patient with history of declining further workup. Patient has verbalized acceptance of the increased risk of opioid therapy (particularly in relation to long acting opioid therapy). Plan to continue to restrict short - acting opioids in relation to sleep for safety concerns. 04/12/2023 Other chronic pain (ICD-10 - G89.29) Patient reports that taking her pain medication allows her to get around easier. Plan to continue oral opioid medication management with slow opioid taper. 06/07/2023 Other sleep disorders (ICD-10 - G47.8) Patient has history of a sleep disorder with mild nocturnal hypoxemia. Patient with history of declining further workup. Patient has verbalized acceptance of the increased risk of opioid therapy (particularly in relation to long acting opioid therapy). Plan to continue to restrict short - acting opioids in relation to sleep for safety concerns. 06/07/2023 Other chronic pain (ICD-10 - G89.29) Patient reports that taking her pain medication allows her to ride in a car to her many appointments with greater ease. Plan to continue oral opioid medication management with slow opioid taper. 01/05/2023 assistant terminal manager (current) use of opiate analgesic (ICD-10 - Z79.891) Patient has a total daily MED of 127.5. This places the patient in the [facility] ultra high risk category for total daily opioid usage. Plan slow opioid taper to a lower risk category. 2022 opioid (OUD) risk tool score = 0. This places the patient in the low risk category. Plan oral fluid toxicology screen today to monitor for presence of any unprescribed or illicit controlled substance(s), as well as prescribed oxycodone. Plan screening a minimum of two times a year for this patient. 01/05/2023 Other chronic pain (ICD-10 - G89.29) Patient reports that taking her pain medication allows her to get to her many doctors appointments. Plan to continue oral opioid medication management with slow opioid taper. 06/07/2023 assistant terminal manager (current) use of opiate analgesic (ICD-10 - Z79.891) Patient has a total daily MED of 112.5. This places the patient in the [facility] ultra high risk category for total daily opioid usage. Plan slow opioid taper to a lower risk category. 04/12/2023 assistant terminal manager (current) use of opiate analgesic (ICD-10 - Z79.891) Patient has a total daily MED of 120. This places the patient in the [facility] ultra high risk category for total daily opioid usage. Plan slow opioid taper to a lower risk category. 10/06/2022 assistant terminal manager (current) use of opiate analgesic (ICD-10 - Z79.891) Patient has a total daily MED of 135. This places the patient in the [facility] ultra high risk category for total daily opioid usage. Plan slow opioid taper to a lower risk category 10/06/2022 Other Patient reports upcoming appointments with rheumatology and oncology 01/05/2023 Other Patient reports an upcoming appointment with oncology. 04/12/2023 Other 06/07/2023 Other Patient reports that her most recent PET scan showed spots on her liver. New medication started. PLAN OF TREATMENT Next Appt Details Provider Name:Matt Metz son, 08/02/2023 11:10:00 AM, [address] [place], [place], [id number], Insurance Providers Payer Name Payer Address Payer Phone Subscriber Number Group Number Insured Name Patient Relationship to Insured Coverage Start Date Coverage End Date [employer] Medicare Part B Claims Department [address] [address] [place] [address] [id number] Ingrid Deras Self - patient is the insured [place] [employer] [address] [place] [id number] Ingrid Deras Self - patient is the insured MEDICAL (GENERAL) HISTORY Medical History History ICD Code Chronic pain Low back pain Lumbar spondylosis, disc disease and spi nal stenosis Sacroiliitis Scoliosis Fibromyalgia Cerebrovascular accident Hypertension Hyperlipidemia Chronic obstructive pulmonary disease Osteoporosis Eosinophilia (remission 1995) Congestive heart failure Hypothyroidism Essential thrombocytopenia Gastroparesis Pneumonia Colon cancer with mets to lymph nodes Tobacco use, COPD Seizures Sleep disorder, mild nocturnal hypoxemia Surgical History Surgery Date(Month/Year) Rotator cuff tear repair, right Tubal ligation Cholecystectomy complicated by ruptured gall bladder Laparoscopic small bowel resection (adan ford of cancerous tumor), 01/27/21 Hospitalization History Reason Date(Month/Year) Colon issues, 03/2010 ER visit for upper respiratory tract inf ection Seizure, treated at [facility] 04/2020 Pneumonia, treated at [facility] 04/2020 Small bowel obstruction, treated at [facility] in [place], [place], 01/26/21 - 02/03/21
--- NOTE | 2023-07-04 00:47 | ECG_ITS ---
[facility] Test Date: 2023-07-04 Pat Name: Ingrid Deras Department: Room: 253 Gender: Female Courtesy Driver: : 1945 Requested By: Raul Murcia Order Number: [id number] Calvin MD: Ritika Shen M.D. Measurements Intervals [place] Rate: 71 P: 77 WY: 149 QRS: -60 QRSD: 102 T: 85 QT: 363 QTc: 397 Interpretive Statements SINUS RHYTHM INCOMPLETE RIGHT BUNDLE BRANCH BLOCK [90+ ms QRS DURATION, TERMINAL R IN V1/V2, 40+ ms S IN I/aVL/V4/V5/V6] LEFT ANTERIOR FASCICULAR BLOCK [QRS AXIS <= -45, QR IN I, RS IN II] LEFT VENTRICULAR HYPERTROPHY AND ST-T CHANGE [VOLTAGE CRITERIA PLUS ST/T ABNORMALITY] POSSIBLE SEPTAL MYOCARDIAL INFARCTION , OF INDETERMINATE AGE [30 ms Q WAVE IN V1/V2] Compared to ECG 07/03/2023 19:21:26 Incomplete right bundle-branch block now present Myocardial infarct finding now present ST (T wave) deviation still present Electronically Signed On 07-04-2023 18:03:26 CDT by Ritika Sehn M.D. [id number]
[2023-07-04] MEDS: ondansetron 2 mg/ML SDV 2 mL 4 MG IVP ×2 (00:49→08:33)
[2023-07-04 01:31] LABS: Basophils # 0.1 10^3/uL (0.0-0.1); Basophils % 0.5 %; Eosinophils % 0.1 %; Hematocrit 38.3 % (36-47); Lymphocytes # 0.6 10^3/uL (0.8-4.8); Lymphocytes % 4.6 %; Mean Corpuscular HGB Conc 29.5 g/dL (30-55); Mean Corpuscular Hemoglobin 30.1 pg (27-33); Mean Corpuscular Volume 102.1 fl (85-98); Mean Platelet Volume 9.3 fL (7.4-10.4); Monocytes # 0.1 10^3/uL (0.2-0.9); Monocytes % 0.5 %; Neutrophils # 12.38 10^3/uL (1.8-7.7); Neutrophils % 93.7 %; Nucleated Red Blood Cells % 0 %; Platelet Count 226 10^3/cmm (157-399); Red Blood Count 3.75 10^6/uL (3.85-5.65); Red Cell Distribution Width 12.3 % (12.1-15.1); White Blood Count 13.22 10^3/uL (3.29-11.43)
[2023-07-04 01:48] LABS: Troponin 5 2HR 21.66 ng/L (0-10)
[2023-07-04 01:51] LABS: Ammonia 52 umol/L (11-51)
[2023-07-04 01:55] LABS: Troponin 5 2HR Delta -0.34 ABS# (0-10)
[2023-07-04 02:20] LABS: Anion Gap 12.8 (5-19); Blood Urea Nitrogen 17 mg/dL (8-23); Calcium 8.1 mg/dL (8.5-10.5); Carbon Dioxide 25 mmol/L (22-29); Chloride 108 mmol/L (98-107); Creatinine Clr Calc Pharmacy 38.0188; Glucose 136 mg/dL (65-115); Magnesium 1.6 mg/dL (1.7-2.3); Osmolality Calculated 296 mOsm/kg (285-295); Potassium 4.8 mmol/L (3.5-5.1); Sodium 141 mmol/L (136-145)
--- NOTE | 2023-07-04 02:45 | PC.RESP ---
EKG ORDERED June AT 2248, WHILE PATIENT IN ER, NOT COMPLETED PRIOR TO PATIENT LEAVING ER AND TRANSFERRING TO PATIENT FLOOR.
--- NOTE | 2023-07-04 04:47 | ECG_ITS ---
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 Measurements Intervals [place] Rate: 68 P: 76 VA: 174 QRS: -52 QRSD: 110 T: 88 QT: 351 QTc: 374 Interpretive Statements SINUS RHYTHM INCOMPLETE RIGHT BUNDLE BRANCH BLOCK [90+ ms QRS DURATION, TERMINAL R IN V1/V2, 40+ ms S IN I/aVL/V4/V5/V6] LEFT ANTERIOR FASCICULAR BLOCK [QRS AXIS <= -45, QR IN I, RS IN II] LEFT VENTRICULAR HYPERTROPHY AND ST-T CHANGE [VOLTAGE CRITERIA PLUS ST/T ABNORMALITY] POSSIBLE SEPTAL MYOCARDIAL INFARCTION , OF INDETERMINATE AGE [30 ms Q WAVE IN V1/V2] POSSIBLE LATERAL MYOCARDIAL INFARCTION , OF INDETERMINATE AGE [30 ms Q WAVE IN I/aVL/V5/V6] Compared to ECG 07/04/2023 00:28:16 No significant changes Electronically Signed On 07-04-2023 18:05:29 CDT by Ritika Shen M.D. [id number]
[2023-07-04 05:29] LABS: Troponin 5 6HR 19.71 ng/L (0-10); Troponin 5 6HR Delta -2.29 ng/L (0-12)
[2023-07-04] MEDS: methylPREDNISolone sod succ 40 mg/mL INJ IVP (06:36)
[2023-07-04] MEDS: mirtazapine 15 mg Tablet 7.5 MG PO (08:08)
[2023-07-04] MEDS: levothyroxine 88 mcg Tablet PO (08:08)
[2023-07-04] MEDS: apixaban 5 mg Tablet 2.5 MG PO ×2 (08:09→17:59)
[2023-07-04] MEDS: fluoxetine 20 mg Capsule 40 MG PO (08:09)
[2023-07-04] MEDS: cyanocobalamin 1,000 mcg Tablet 1000 MCG PO (08:09)
[2023-07-04] MEDS: aspirin 81 mg EC Tablet PO (08:09)
[2023-07-04] MEDS: oxyCODONE 20 mg ER (12 HR) Tablet PO ×2 (08:09→18:00)
[2023-07-04] MEDS: digoxin 125 mcg Tablet PO (08:09)
[2023-07-04] MEDS: BuSPIRONE 10 mg Tablet 15 MG PO ×2 (08:09→18:00)
[2023-07-04] MEDS: pantoprazole DR 40 mg Tablet PO (08:10)
[2023-07-04] MEDS: potassium chloride ER 10 mEq Tablet PO (08:10)
[2023-07-04] MEDS: dilTIAZem 30 mg Tablet PO ×2 (08:10→18:00)
--- NOTE | 2023-07-04 08:45 | PC.PHAR ---
PT UNABLE TO VERIFY HOME MEDICATIONS- UNABLE TO REACH PTS CONTACT- MEDICATIONS VERIFIED USING EXTERNAL MED LIST LAST FILLED
[2023-07-04] MEDS: oxyCODONE 5 mg IR Tab/Cap PO ×2 (11:11→17:59)
--- NOTE | 2023-07-04 12:06 | CT_ITS ---
WS: [id number] CT ABDOMEN PELVIS TECHNIQUE: Contrast-enhanced CT of the abdomen and pelvis with coronal and sagittal reformatted image s. CLINICAL INFORMATION: abd pain COMPARISON: PET/CT 05/03/23 images only. DLP: 348.[address] scans at [facility] use at least one of these dose optimization techniques: automated e xposure control; mA and/or kV adjustment per patient size (includes targeted exams where dose is matc hed to clinical indication); or iterative reconstruction. FINDINGS: Diffuse fatty infiltration of the liver. Chronic appearing intrahepatic biliary ductal dilatation wit h dilatation of the common bile duct to the pancreatic head. Normal tapering of the common bile duct distally. This is unchanged in appearance since the recent PET/CT and was also present dating back to 2008 CTA Fatty atrophy of the pancreas. Prominent lobular dilatation of the anterior pancreatic duct. No visua lized pancreatic mass or lesion. Normal portal vein and splenic vein. Normal spleen. Small lesion in the spleen likely cyst or hemangioma. Normal GE junction. Food products in the stomach. Fibrosis in the lung bases LEFT greater than RIGHT. A few patchy nodular infiltrates in the LEFT grea ter than RIGHT lower lobes. Adrenal glands are normal. No hydronephrosis in either kidney. Bilateral renal cysts. Normal enhancement. Tortuous abdominal aorta with a dense calcification. No aneurysm. Thoracolumbar scoliosis. Normal sigmoid colon. A few sigmoid diverticuli. Mild transverse colon const ipation. No evidence of high-grade obstruction. No free fluid in the abdomen or pelvis. Osteopenia. M ultilevel degenerative disc disease lumbar spine. CT/CT abdomen pelvis w con* [id number] IMPRESSION: 1. Slight patchy nodular infiltrates in the LEFT greater than RIGHT lower lobe s similar to the prior PET/CT. Recommend correlation for pneumonia. 2. Food products in the distended stomach. No evidence of high-grade small or large bowel obstruction. 3. Diffuse intrahepatic biliary ductal dilatation similar to the prior studies . Tapering of the common bile duct at the pancreatic head. Recommend correlatio n with liver and biliary function studies. Findings were present dating back to 2008. This could be further evaluated with MRCP or ERCP if not previously perf ormed. 4. Fatty atrophy of the pancreas. No pancreatic head mass. Mild lobular dilata tion of the pancreatic duct. This is also similar to the prior studies. 5. Bilateral renal cysts. No hydronephrosis. 6. Urine distended bladder. 7. No other acute findings.
--- NOTE | 2023-07-04 12:08 | P.PN_ITS ---
Subjective 2 Subjective: seen this morning pt says she has to poop otherwise I will get a bowel obstruction she is unable to provide me any meaningful history but says she needs an enema says i use a suppository at home but unable to tell me how often family member at bedside says she has been having seizures and is aware when she has one. however cannot give me further details at this time says was supposed to see dr. archuleta on tuesday however ended up having a seizure. Vitals/I&O/Wt Last Vital Signs Temp 98.0 F 07/04/23 07:21 Pulse 63 07/04/23 08:09 Resp 15 07/04/23 07:21 BP 146/69 07/04/23 07:21 Pulse Ox 99 07/04/23 07:21 O2 Del Method Nasal Cannula 07/04/23 07:21 O2 Flow Rate 2 07/04/23 07:21 FiO2 30 07/03/23 20:20 07/03/23 07/04/23 07/04/23 22:59 06:59 14:59 Intake Total 1000 / 1000 Balance 1000 / 1000 Weight last 48 hrs Weight 47.854 kg Weight 46.765 kg Weight 44.452 kg Physical Exam 2 Const: COMMON NORMALS: no acute distress and patient oriented x3 OTHER: Cancer cachexia, bilateral temporal muscle wasting, loss of fat pad under bilateral clavicles bilateral ribs, muscle wasting of bilateral thighs, bilateral calves bilateral arms, HENMT: COMMON NORMALS: normocephalic HEAD & SCALP: normocephalic Eye: COMMON NORMALS: Equal, round and reactive pupils present and EOMs intact bilaterally PUPIL: Yes Equal, round and reactive pupils present Neck/C-Spine: COMMON NORMALS: no JVD Resp: COMMON NORMALS: normal respiratory effort, No retractions, No use of accessory muscles and clear to auscultation bilaterally AUSCULTATION: clear to auscultation bilaterally Cardio: COMMON NORMALS: no JVD, regular rate, regular rhythm, S1 normal heart sound present and S2 normal heart sound present RATE: regular rate RHYTHM: regular rhythm HEART SOUNDS: S1 normal heart sound present and S2 normal heart sound present GI: COMMON NORMALS: Normal to inspection, nondistended, normoactive bowel sounds present, Soft to palpation, non-tender, No hepatosplenomegaly present and no bruits PALPATION: Yes Soft to palpation and Yes No hepatosplenomegaly present Extremity: COMMON NORMALS: no calf tenderness and no pedal edema Neuro: COMMON NORMALS: patient oriented x3, CN's II-XII intact bilaterally and moves all extremities Psych: COMMON NORMALS: mental status grossly normal Data 07/04/23 01:22 07/04/23 01:22 A&P Assessment and plan (1) Breakthrough seizure: (2) Dehydration: (3) Hypercapnic respiratory failure: (4) COPD (chronic obstructive pulmonary disease): (5) COPD exacerbation: (6) Acute encephalopathy: (7) Cancer cachexia: (8) Protein calorie malnutrition: (9) Physical deconditioning: Plan Breakthrough seizures? Possible etiology behind her drowsiness, That she denies a history of seizures but is on Keppra 500 mg twice daily? ? continue keppra 1000 bid. Unsure if had a true breakthrough seizure at home. ?seizure precautions ? CT of the head: negative for acute pathology Falls ? PT OT ? CT of the head Atrial fibrillation ? Check digoxin levels - Hold digoxin/ level 1.5 today ? Continue Eliquis Dehydration ? 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 Currently on lanreotide Acute hypercapnic respiratory failure ? Associate with increased drowsiness, likely secondary hypercapnia ? Secondary to COPD exacerbation ? Continue Solu-Medrol ? BiPAP therapy scheduled during the night ? DuoNeb ? Budesonide Hypothyroidism check TSH continue levothyroxine Cancer pain ? Continue home oxycodone 20 mg twice daily ? Oxycodone 5 mg every 4 hours as needed Cancer cachexia protein calorie malnutrition, physical deconditioning, BMI 19 Secondary to underlying neuroendocrine tumor ? PT OT ? Dietary eval ? Start protein shake supplementation Fatigue, malaise ? Likely secondary to underlying cancer ? Check TSH, ? UA abnormal. Start ceftriaxone today. Full code Eliquis for DVT prophylaxis Continue above management. Attestations 2 Medical Necessity Statement*: Patient requires hospitalization, inpatient, greater than 2 midnights, for breakthrough seizures, falls, dehydration, acute hypercapnic respiratory failure, Diagnoses Breakthrough seizure G40.919 Dehydration E86.0 Hypercapnic respiratory failure J96.92 COPD (chronic obstructive pulmonary disease) J44.9 COPD exacerbation J44.1 Acute encephalopathy G93.40 Cancer cachexia R64 Protein calorie malnutrition E46 Physical deconditioning R53.81
[2023-07-04] MEDS: iohexol 350 mg/mL 500 mL Btl (per mL) IV (14:24)
[2023-07-04] MEDS: cefTRIAXone 1,000 MG in sodium chloride 0.9% (plus) 50 ML 100 MG IV (15:36)
--- NOTE | 2023-07-04 18:09 | PC.NURSE ---
Notified dyehouse worker that patient would need an ultra sound IV as we have attempted x 4.
[2023-07-04] MEDS: trazodone 100 mg Tablet PO (20:47)
[2023-07-04] MEDS: atorvastatin 40 mg Tablet 10 MG PO (20:47)
[2023-07-05] VITALS (7 sets, daily range): BP systolic 101–131; BP diastolic 61–80; PULSE 53–76; RESP 16–18; TEMP 36.4–36.7; O2SAT 95–99
[2023-07-05] MEDS: levETIRAcetam 500 mg Tablet 1000 MG PO ×2 (00:30→11:21)
[2023-07-05] MEDS: gabapentin 100 mg Capsule PO ×2 (00:31→09:52)
[2023-07-05 05:25] LABS: Basophils % 0.1 %; Hematocrit 32.5 % (36-47); Lymphocytes % 6.8 %; Mean Corpuscular HGB Conc 31.1 g/dL (30-55); Mean Corpuscular Hemoglobin 29.9 pg (27-33); Mean Corpuscular Volume 96.2 fl (85-98); Mean Platelet Volume 9.8 fL (7.4-10.4); Monocytes # 0.4 10^3/uL (0.2-0.9); Monocytes % 2.8 %; Neutrophils # 12.44 10^3/uL (1.8-7.7); Neutrophils % 89.7 %; Nucleated Red Blood Cells % 0 %; Platelet Count 221 10^3/cmm (157-399); Red Blood Count 3.38 10^6/uL (3.85-5.65); Red Cell Distribution Width 12.4 % (12.1-15.1); White Blood Count 13.87 10^3/uL (3.29-11.43)
[2023-07-05 05:56] LABS: Anion Gap 10.7 (5-19); Blood Urea Nitrogen 15 mg/dL (8-23); Calcium 7.8 mg/dL (8.5-10.5); Carbon Dioxide 25 mmol/L (22-29); Chloride 106 mmol/L (98-107); Creatinine Clr Calc Pharmacy 43.6823; Glucose 129 mg/dL (65-115); Magnesium 1.7 mg/dL (1.7-2.3); Osmolality Calculated 287 mOsm/kg (285-295); Potassium 4.7 mmol/L (3.5-5.1); Sodium 137 mmol/L (136-145)
--- NOTE | 2023-07-05 08:43 | PC.NURSE ---
breakfast- patient became nauseated while eating breakfast, vomited approximately 70ml liquid, primary nurse informed, patient stated she was hungry and asked for her oatmeal
[2023-07-05] MEDS: BuSPIRONE 10 mg Tablet 15 MG PO (09:50)
[2023-07-05] MEDS: cyanocobalamin 1,000 mcg Tablet 1000 MCG PO (09:50)
[2023-07-05] MEDS: apixaban 5 mg Tablet 2.5 MG PO (09:51)
[2023-07-05] MEDS: dilTIAZem 30 mg Tablet PO (09:51)
[2023-07-05] MEDS: levothyroxine 88 mcg Tablet PO (09:51)
[2023-07-05] MEDS: pantoprazole DR 40 mg Tablet PO (09:51)
[2023-07-05] MEDS: fluoxetine 20 mg Capsule 40 MG PO (09:51)
[2023-07-05] MEDS: aspirin 81 mg EC Tablet PO (09:51)
[2023-07-05] MEDS: potassium chloride ER 10 mEq Tablet PO (09:51)
[2023-07-05] MEDS: oxyCODONE 20 mg ER (12 HR) Tablet PO (09:51)
[2023-07-05] MEDS: digoxin 125 mcg Tablet PO (09:52)
[2023-07-05] MEDS: mirtazapine 15 mg Tablet 7.5 MG PO (09:52)
--- NOTE | 2023-07-05 11:42 | PM.DCS ---
Discharge Providers Date of Admission: 07/03/23 22:06 Date of Discharge: July 05, 2023 Attending Provider at Admission: Raul Murcia MD Attending Provider at Discharge: Bella Torres MD Primary Care Provider: Roderick Andrews Diagnoses at Discharge Discharge Diagnosis (1) Breakthrough seizure: Status: Acute (2) Dehydration: Status: Resolved (3) Hypercapnic respiratory failure: Status: Acute (4) COPD (chronic obstructive pulmonary disease): Status: Acute Permanent problem details: Oxygen dependent (5) COPD exacerbation: Status: Acute (6) Acute encephalopathy: Status: Resolved (7) Cancer cachexia: Status: Acute (8) Protein calorie malnutrition: Status: Acute (9) Physical deconditioning: Status: Acute Reason for Visit Reason for Visit: WEAKNESS/AMS Hospital Course Hospital Course Patient was admitted for COPD exacerbation and possible breakthrough seizure. Keppra was doubled to 1000 twice daily. Respiratory hawley patient improved significantly and no longer had any wheezing. Was on baseline oxygen. During hospitalization did not have another seizure. Stated that she has an appointment with her neurologist the day of discharge however she has canceled her appointment and will need to be rescheduled. field secretary reschedule her appointment for her. Also during hospitalization patient stated that she was constipated and if she was not given an enema she will have a bowel obstruction. Patient complained of abdominal pain. CT abdomen pelvis was pursued however did not show any acute pathology other than her chronic findings. Patient was given enema. Abdominal pain also resolved and patient felt better. She was excited to go home. She was offered to see neurology at [facility] however she stated she wanted to go back to Dr. Díaz. Copy of the summary will be sent to Dr. Díaz as well. Patient discharged home in stable condition. Physical Exam Const: COMMON NORMALS: no acute distress and patient oriented x3 OTHER: Cancer cachexia, bilateral temporal muscle wasting, loss of fat pad under bilateral clavicles bilateral ribs, muscle wasting of bilateral thighs, bilateral calves bilateral arms, HENMT: COMMON NORMALS: normocephalic HEAD & SCALP: normocephalic Eye: COMMON NORMALS: Equal, round and reactive pupils present and EOMs intact bilaterally PUPIL: Yes Equal, round and reactive pupils present Neck/C-Spine: COMMON NORMALS: no JVD Resp: COMMON NORMALS: normal respiratory effort, No retractions, No use of accessory muscles and clear to auscultation bilaterally AUSCULTATION: clear to auscultation bilaterally Cardio: COMMON NORMALS: no JVD, regular rate, regular rhythm, S1 normal heart sound present and S2 normal heart sound present RATE: regular rate RHYTHM: regular rhythm HEART SOUNDS: S1 normal heart sound present and S2 normal heart sound present GI: COMMON NORMALS: Normal to inspection, nondistended, normoactive bowel sounds present, Soft to palpation, non-tender, No hepatosplenomegaly present and no bruits PALPATION: Yes Soft to palpation and Yes No hepatosplenomegaly present Extremity: COMMON NORMALS: no calf tenderness and no pedal edema Neuro: COMMON NORMALS: patient oriented x3, CN's II-XII intact bilaterally and moves all extremities Psych: COMMON NORMALS: mental status grossly normal Discharge Data Studies Completed and Pending Completed Studies During Hospitalization Category Date Time Status CT abdomen pelvis w con* [id number] Stat Cat Scan 07/04/23 12:[address] head wo con* [id number] Routine Cat Scan 07/03/23 23:36 Completed XR chest 1V portable [id number] Stat Exams 07/03/23 20:00 Completed Pending at discharge Category Date Time Status Urine Culture Stat Lab 07/03/23 22:57 Results Radiology Impressions Chest X-Ray 07/03/23 20:00 IMPRESSION: No acute findings. Head CT 07/03/23 23:36 IMPRESSION: 1. No acute findings. 2. Cerebral atrophy 3. 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 Slight patchy nodular infiltrates in the LEFT greater than RIGHT lower lobes similar to the prior PET/CT. Recommend correlation for pneumonia. 2. Food products in the distended stomach. No evidence of high-grade small or large bowel obstruction. 3. Diffuse intrahepatic biliary ductal dilatation similar to the prior studies. Tapering of the common bile duct at the pancreatic head. Recommend correlation with liver and biliary function studies. Findings were present dating back to 2008. This could be further evaluated with MRCP or ERCP if not previously performed. 4. Fatty atrophy of the pancreas. No pancreatic head mass. Mild lobular dilatation of the pancreatic duct. This is also similar to the prior studies. 5. Bilateral renal cysts. No hydronephrosis. 6. Urine distended bladder. 7. No other acute findings. Laboratory Results WBC 13.87 10^3/uL (3.29-11.43) H 07/05/23 04:51 RBC 3.38 10^6/uL (3.85-5.65) L 07/05/23 04:51 Hgb 10.10 g/dL (11.27-16.99) L 07/05/23 04:51 Hct 32.5 % (36-47) L 07/05/23 04:51 MCV 96.2 fl (85-98) 07/05/23 04:51 MCH 29.9 pg (27-33) 07/05/23 04:51 MCHC 31.1 g/dL (30-55) D 07/05/23 04:51 RDW 12.4 % (12.1-15.1) 07/05/23 04:51 Plt Count 221 10^3/cmm (157-399) 07/05/23 04:51 MPV 9.8 fL (7.4-10.4) 07/05/23 04:51 Neut % (Auto) 89.7 % 07/05/23 04:51 Lymph % (Auto) 6.8 % 07/05/23 04:51 [place] % (Auto) 2.8 % 07/05/23 04:51 Eos % (Auto) 0.0 % 07/05/23 04:51 Baso % (Auto) 0.1 % 07/05/23 04:51 Neut # (Auto) 12.44 10^3/uL (1.8-7.7) H 07/05/23 04:51 Lymph # (Auto) 1.0 10^3/uL (0.8-4.8) 07/05/23 04:51 [place] # (Auto) 0.4 10^3/uL (0.2-0.9) 07/05/23 04:51 Eos # (Auto) 0.0 10^3/uL (0.0-0.8) 07/05/23 04:51 Baso # (Auto) 0.0 10^3/uL (0.0-0.1) 07/05/23 04:51 Nucleated RBC % (auto) 0 % 07/05/23 04:51 Nucleated RBCs # 0.0 /100WBC 07/05/23 04:51 Specimen Type Arterial 07/03/23 20:05 Sample Site Radial, right 07/03/23 20:05 ABG pH 7.30 (7.35-7.45) L 07/03/23 20:05 ABG pCO2 57.9 mmHg (35-45) H 07/03/23 20:05 ABG pO2 113.0 mmHg (80.0-100.0) H 07/03/23 20:05 ABG HCO3 28.4 mmol/L (22-26) H 07/03/23 20:05 ABG Base Excess 0.9 mmol/L (-2.0-2.0) 07/03/23 20:05 [place] Test Pos 07/03/23 20:05 Hematocrit 38.3 % (37-47) 07/03/23 20:05 O2 Delivery Device Nc 07/03/23 20:05 O2 Liters/Min 4.0 % 07/03/23 20:05 Truck Rental Service Attendant ID [email or web address] 07/03/23 20:05 Sodium 137 mmol/L (136-145) 07/05/23 04:51 Potassium 4.7 mmol/L (3.5-5.1) 07/05/23 04:51 Chloride 106 mmol/L (98-107) 07/05/23 04:51 Carbon Dioxide 25 mmol/L (22-29) 07/05/23 04:51 Anion Gap 10.7 (5-19) 07/05/23 04:51 BUN 15 mg/dL (8-23) 07/05/23 04:51 Creatinine 0.8 mg/dL (0.5-0.9) 07/05/23 04:51 GFR Calculation Not Reportable 07/05/23 04:51 Glucose 129 mg/dL (65-115) H 07/05/23 04:51 Estimat Average Glucose 91 07/03/23 19:50 Hemoglobin A1c 4.8 % (4.0-6.0) 07/03/23 19:50 Calculated Osmolality 287 mOsm/kg (285-295) 07/05/23 04:51 Lactic Acid 1.0 mmol/L (0.5-2.2) 07/03/23 19:50 Calcium 7.8 mg/dL (8.5-10.5) L 07/05/23 04:51 Magnesium 1.7 mg/dL (1.7-2.3) 07/05/23 04:51 Total Bilirubin 0.2 mg/dL (0.15-1.2) 07/03/23 19:50 AST 17 U/L (0-32) 07/03/23 19:50 ALT 7 U/L (0-33) 07/03/23 19:50 Alkaline Phosphatase 74 U/L (35-105) 07/03/23 19:50 Ammonia 52 umol/L (11-51) H 07/04/23 01:22 Creatine Kinase 25 U/L (26-192) L 07/03/23 23:21 Troponin T Baseline 22 ng/L (0-10) H 07/03/23 23:21 Troponin T 120 Minute 21.66 ng/L (0-10) H 07/04/23 01:22 Delta Troponin T -0.34 ABS# (0-10) L 07/04/23 01:22 Troponin T Hi Sens 6Hr 19.71 ng/L (0-10) H 07/04/23 04:23 Troponin T Hi Sens 6Hr Delta -2.29 ng/L (0-12) L 07/04/23 04:23 C-Reactive Protein 16.9 mg/L (0.0-4.9) H 07/03/23 19:50 Total Protein 6.9 g/dL (6.6-8.7) 07/03/23 19:50 Albumin 3.3 g/dL (3.5-5.2) L 07/03/23 19:50 Globulin 3.6 g/dL (1.3-4.6) 07/03/23 19:50 Triglycerides 112 mg/dL (0-150) 07/03/23 23:21 Cholesterol 113 mg/dL (0-200) 07/03/23 23:21 LDL Cholesterol, Calc 47 mg/dL (50-129) L 07/03/23 23:21 HDL Cholesterol 44 mg/dL (60-100) L 07/03/23 23:21 LDL/HDL Ratio 1.07 RATIO (0.00-3.22) 07/03/23 23:21 Cholesterol/HDL Ratio 2.57 mg/dL (0.0-4.40) 07/03/23 23:21 TSH 0.50 uIU/mL (0.27-4.20) 07/03/23 23:21 Urine Color Yellow (Yellow) 07/03/23 22:57 Urine Appearance Sl hazy (CLEAR) A 07/03/23 22:57 Urine pH 5 (5-7) 07/03/23 22:57 Ur Specific [place] 1.020 (1.005-1.030) 07/03/23 22:57 Urine Protein Neg (Negative) 07/03/23 22:57 Urine Glucose (UA) Norm (Normal) 07/03/23 22:57 Urine Ketones 1+ (Negative) H 07/03/23 22:57 Urine Blood Neg (Negative) 07/03/23 22:57 Urine Nitrate Negative (Negative) 07/03/23 22:57 Urine Bilirubin Neg (Negative) 07/03/23 22:57 Urine Urobilinogen Neg mg/dL (Negative) 07/03/23 22:57 Ur Leukocyte Esterase 1+ (Negative) H 07/03/23 22:57 Urine RBC 0-4 /hpf (0-2) H 07/03/23 22:57 Urine WBC 25-40 /hpf (0-5) H 07/03/23 22:57 Ur Squamous Epith Cells 5-10 /hpf (0-5) H 07/03/23 22:57 Amorphous Sediment Not Reportable 07/03/23 22:57 Urine Bacteria 2+ /hpf (NONE) H 07/03/23 22:57 Hyaline Casts 5-10 /lpf H 07/03/23 22:57 Urine Mucus 1+ /hpf 07/03/23 22:57 Digoxin 1.5 ng/mL (0.6-1.2) H 07/03/23 23:21 Vitals Last Vital Signs Temp 97.7 F 07/05/23 07:49 Pulse 76 07/05/23 09:52 Resp 16 07/05/23 07:49 BP 131/80 07/05/23 07:49 Pulse Ox 95 07/05/23 07:49 O2 Del Method Nasal Cannula 07/05/23 07:49 O2 Flow Rate 2 07/05/23 07:49 FiO2 30 07/03/23 20:20 Discharge Plan Discharge Patient Disposition: Home Health Service Condition: Stable Prescriptions: New prednisone 20 mg tablet 40 mg PO DAILY 3 Days Qty: 6 0RF levofloxacin 500 mg tablet 500 mg PO DAILY 3 Days Qty: 3 0RF Continued montelukast [Singulair] 10 mg tablet 10 mg PO DAILY diltiazem HCl [Cardizem] 30 mg tablet 30 mg PO BID baclofen 10 mg tablet 10 mg PO Q6H atorvastatin [Lipitor] 10 mg tablet 10 mg PO BEDTIME aspirin [Ecotrin Low Strength] 81 mg tablet,delayed release (DR/EC) 81 mg PO DAILY Eliquis 2.5 mg tablet 2.5 mg PO BID buspirone 15 mg tablet 15 mg PO BID levothyroxine 88 mcg capsule 88 mcg PO DAILY mirtazapine 7.5 mg tablet 7.5 mg PO DAILY trazodone 100 mg tablet 100 mg PO DAILY fluoxetine 40 mg capsule 40 mg PO DAILY oxycodone [OxyContin] 20 mg tablet,oral only,ext.rel.12 hr 20 mg PO BID (DME) glucose monitor See Rx Instructions .Route .MEDSUPPLY Qty: 1 0RF Rx Instructions: As directed (DME) lancets See Rx Instructions .Route .MEDSUPPLY Qty: 1 0RF Rx Instructions: As directed alendronate 70 mg/75 mL solution 70 mg PO Q7D oxycodone 10 mg tablet 10 mg PO Q4H PRN (Reason: Pain) Rx Instructions: 1/2 - 1 4-6 hours as needed 3.5 max (DME) glucose test strips See Rx Instructions .Route .MEDSUPPLY Qty: 50 1RF Rx Instructions: As directed cholecalciferol (vitamin D3) 1,250 mcg (50,000 unit) capsule 50,000 unit PO .qweek Qty: 14 0RF vitamin B complex Tablet 1 tab PO DAILY biotin 10,000 mcg capsule 10,000 mcg PO DAILY gabapentin 100 mg capsule 100 mg PO Q8H Qty: 90 4RF ondansetron HCl [Zofran] 4 mg Tablet 4 mg PO Q8H PRN (Reason: Nausea) cyanocobalamin (vitamin B-12) [Vitamin B-12] 1,000 mcg Tablet 1,000 mcg PO DAILY potassium chloride 10 mEq tablet extended release 10 meq PO DAILY ascorbic acid (vitamin C) [Vitamin C] 500 mg Tablet 500 mg PO DAILY omeprazole 20 mg Capsule,Delayed Release(Dr/Ec) 20 mg PO DAILY iron, carbonyl 65 mg Tablet 65 mg PO DAILY naloxone [Narcan] 4 mg/actuation [place],Non-Aerosol See Rx Instructions .ROUTE .COMPLEX Rx Instructions: as directed intranasally prn Movantik 12.5 mg tablet 12.5 mg PO QAM Changed Keppra 500 mg tablet 1,000 mg PO BID Qty: 60 0RF Held digoxin [Digox] 125 mcg (0.125 mg) tablet 125 mcg PO DAILY Hold Instructions: see pcp Discharge Orders: Discharge Order (Routine); Ordered 07/05/23 Ordered By: Bella Torres Referrals: [facility] [Other] Conner Díaz MD [Non-Staff] - 08/18/23 10:00 am ([phone] FOR APPOINTMENT) Roderick Andrews [Primary Care Provider] - 07/08/23 10:20 am (APPOINTMENT WITH NATHALY DAMON) Discharge Diet: Cardiac Discharge Activity: Resume usual activity Patient Instructions: COPD, Prednisone (By mouth), Levofloxacin (By mouth), COPD Stoplight, Opioid Safety Discharge Attestations Time Spent in Discharge Care*: less than 30 min Quality Metrics Clinical Quality Measures [ No reported AMI, CVA or VTE this stay] Coding Level of Care Code Acute Code for Chg Fwd Diagnoses Breakthrough seizure G40.919 Dehydration E86.0 Hypercapnic respiratory failure J96.92 COPD (chronic obstructive pulmonary disease) J44.9 COPD exacerbation J44.1 Acute encephalopathy G93.40 Cancer cachexia R64 Protein calorie malnutrition E46 Physical deconditioning R53.81
[2023-07-05] MEDS: oxyCODONE 5 mg IR Tab/Cap PO (13:04)
== END 2023-07-05 14:38 | disposition home health service (06) | DRG 190 ==
LOC: ER 21:58 → MEDSURG 23:02
PROVIDERS: Admitting Provider Family Medicine; Emergency Provider Emergency Medicine; PCP Family Medicine; Visit Provider Internal Medicine
DX: J44.1 Chronic obstructive pulmonary disease with (acute) exacerbation (principal); J96.02 Acute respiratory failure with hypercapnia; G93.40 Encephalopathy, unspecified; C18.9 Malignant neoplasm of colon, unspecified; C78.7 Secondary malignant neoplasm of liver and intrahepatic bile duct; Z68.1 Body mass index [BMI] 19.9 or less, adult; E46 Unspecified protein-calorie malnutrition; I48.20 Chronic atrial fibrillation, unspecified; R56.9 Unspecified convulsions; E86.0 Dehydration; E88.A Wasting disease (syndrome) due to underlying condition; R53.81 Other malaise; Z99.81 Dependence on supplemental oxygen; F17.210 Nicotine dependence, cigarettes, uncomplicated; Z79.01 Long term (current) use of anticoagulants; Z79.82 Long term (current) use of aspirin; R29.6 Repeated falls; Z86.73 Personal history of transient ischemic attack (TIA), and cerebral infarction without residual deficits; Z86.718 Personal history of other venous thrombosis and embolism; I50.9 Heart failure, unspecified; E03.9 Hypothyroidism, unspecified; I11.0 Hypertensive heart disease with heart failure; E78.5 Hyperlipidemia, unspecified
CPT/HCPCS: 36415; 36600; 70450; 71045; 74177; 80048; 80053; 80061; 80162; 81001; 81003; 82140; 82550; 82803; 83036; 83605; 83735; 84443; 84484; 85025; 86140; 87086; 93005; 94640; 94660; 94664; 96361; 96374; 96375; 97162; 97166; 97530; 97535; 99285; C9113; J0696; J2405; J2919; J7030; Q9967

== ENCOUNTER 2023-07-19 11:46 | Oncology outpatient (recurring) (ONCR) | payer MEDICARE, MEDICAID, SELFPAY ==
[2023-07-19 12:28] LABS: Basophils # 0.1 10^3/uL (0.0-0.1); Basophils % 0.4 %; Eosinophils # 0.3 10^3/uL (0.0-0.8); Eosinophils % 2.4 %; Hematocrit 36.1 % (36-47); Lymphocytes # 2.2 10^3/uL (0.8-4.8); Lymphocytes % 15.6 %; Mean Corpuscular HGB Conc 31.9 g/dL (30-55); Mean Corpuscular Hemoglobin 30.2 pg (27-33); Mean Corpuscular Volume 94.8 fl (85-98); Mean Platelet Volume 9.5 fL (7.4-10.4); Monocytes # 0.6 10^3/uL (0.2-0.9); Monocytes % 3.9 %; Neutrophils % 77.1 %; Nucleated Red Blood Cells % 0 %; Platelet Count 318 10^3/cmm (157-399); Red Blood Count 3.81 10^6/uL (3.85-5.65); Red Cell Distribution Width 12.9 % (12.1-15.1)
[2023-07-19 12:42] LABS: Alanine Aminotransferase 6 U/L (0-33); Albumin Level 3.3 g/dL (3.5-5.2); Alkaline Phosphatase 71 U/L (35-105); Anion Gap 17.3 (5-19); Aspartate Amino Transferase 12 U/L (0-32); Blood Urea Nitrogen 20 mg/dL (8-23); Calcium 9.4 mg/dL (8.5-10.5); Carbon Dioxide 27 mmol/L (22-29); Chloride 103 mmol/L (98-107); Globulin 3.1 g/dL (1.3-4.6); Glucose 124 mg/dL (65-115); Osmolality Calculated 300 mOsm/kg (285-295); Potassium 4.3 mmol/L (3.5-5.1); Sodium 143 mmol/L (136-145); Total Bilirubin 0.3 mg/dL (0.15-1.2); Total Protein 6.4 g/dL (6.6-8.7)
[2023-07-19] MEDS: sodium chloride 0.9% 500 ML 999 ML IV (14:49)
[2023-07-19] MEDS: ipratropium-albuterol 3 mL Neb INHALATION (14:50)
[2023-07-19 15:24] VITALS: BP 152/84; PULSE 72; RESP 16; TEMP 36.6; O2SAT 97
[2023-07-19] MEDS: LANREOTIDE 120 MG/0.5 ML SUBCUT (15:27)
== END 2023-07-22 23:59 | disposition home or self-care (01) ==
LOC: ONCMED 11:47
PROVIDERS: Internal Medicine Medical Oncology; PCP Family Medicine; Visit Provider Neurological Surgery
DX: C7A.019 Malignant carcinoid tumor of the small intestine, unspecified portion; Z79.899 Other long term (current) drug therapy; C78.7 Secondary malignant neoplasm of liver and intrahepatic bile duct; Z90.49 Acquired absence of other specified parts of digestive tract; Z79.52 Long term (current) use of systemic steroids; J06.9 Acute upper respiratory infection, unspecified; R05.9 Cough, unspecified; K59.00 Constipation, unspecified
CPT/HCPCS: 36415; 80053; 84260; 85025; 86316; 96360; 99214; J1930; J7040

== ENCOUNTER 2023-07-21 10:59 | Outpatient (CLI) | payer MEDICARE, MEDICAID, SELFPAY | END 2023-07-21 11:00 | disposition home or self-care (01) | LOC: LAB 11:01 | PROVIDERS: PCP Family Medicine; Visit Provider Internal Medicine Medical Oncology | DX: C7A.019 Malignant carcinoid tumor of the small intestine, unspecified portion (principal) | CPT/HCPCS: 83497 ==

== ENCOUNTER 2023-07-31 14:56 | Emergency (ER) | payer MEDICARE, MEDICAID, SELFPAY ==
[2023-07-31 14:58] VITALS: BP 157/79; PULSE 93; RESP 18; O2SAT 94; BMI 19.5
[2023-07-31 15:03] VITALS: TEMP 36.8
--- NOTE | 2023-07-31 15:24 | XRR_ITS ---
PROCEDURE INFORMATION: Exam: XR Chest Exam date and time: 07/31/2023 4:01 PM Age: 77 years old Clinical indication: Patient HX: Fever; Weakness; Lung CA PT TECHNIQUE: Imaging protocol: Radiologic exam of the chest. Views: 1 view. COMPARISON: CR (CHEST, ) 07/03/2023 8:32 PM FINDINGS: Lungs: Patchy atelectasis involves both perihilar regions as well as the left lung base. I see no definite lung mass or infiltrate. Pleural spaces: Unremarkable. No pleural effusion. No pneumothorax. Heart/Mediastinum: Unremarkable. No cardiomegaly. Bones/joints: Unremarkable. XR/XR chest 1V portable [id number] IMPRESSION: Bilateral atelectasis
--- NOTE | 2023-07-31 15:26 | ED_ITS ---
HPI - Fever 2 General: Chief Complaint: Fever Stated Complaint: FEVER; WEAKNESS Time Seen by Provider: 07/31/23 15:15 History of Present Illness: Patient presents to the ER for by ambulance from home with complaint of fever and just not feeling very well. Patient says she saw her PCP last week and was put on another round of antibiotics she is unsure what it was or what it was for but she says that she does not think they worked and she just does not feel good. Patient says she is has had mild fever and decreased urine output. 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 Her oncologist and family practice doctor and neurologist are all in [place]. 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 Review of Systems 2 General: Reports: 10 or more systems reviewed and unremarkable except in HPI and below PFSH ED 2 PFSH: Medical History Malignant carcinoid tumor Osteoporosis TIA (transient ischemic attack) DVT (deep venous thrombosis) CHF (congestive heart failure) COPD (chronic obstructive pulmonary disease) Oxygen dependent Hypothyroidism Hypertension Hyperlipidemia Fibromyalgia Chronic back pain Paroxysmal atrial fibrillation Surgical History History of repair of rotator cuff H/O bilateral cataract extraction History of cholecystectomy History of resection of small bowel (01/26/21) Diagnostic laparoscopy converted to exploratory laparotomy with partial small bowel resection Family History Father Heart disease Mother Diabetes Brother Heart disease Sister Diabetes Other Family history non-contributory Social History Smoking and tobacco/nicotine status: never used tobacco/nicotine Second hand smoke exposure: No Alcohol intake: former Former alcohol use details: She has had use in the past, but never heavy. Substance/Drug Use: never Adopted: No Caregiver/support person: Yes Lives independently: Yes Housing: Apartment Marital status: Unknown Number of children: 2 Number of grandchildren: 4 Current occupational status: retired Physical Exam 2 Const: COMMON NORMALS: no acute distress, average body habitus, patient oriented x3, no limitations, healthy appearing, alert and well nourished HENMT: COMMON NORMALS: normocephalic, atraumatic, hearing grossly normal bilaterally, external ears normal, Normal external nose present and moist oral mucous membranes HEAD & SCALP: normocephalic and atraumatic NOSE: Normal external nose present EXTERNAL EAR: Yes external ears normal Neck/C-Spine: COMMON NORMALS: no JVD Chest: COMMONS NORMALS: normal inspection of the chest and normal palpation of entire chest wall Resp: COMMON NORMALS: normal respiratory effort, No retractions, No use of accessory muscles and clear to auscultation bilaterally AUSCULTATION: clear to auscultation bilaterally Cardio: COMMON NORMALS: no JVD, regular rate, regular rhythm, S1 normal heart sound present, S2 normal heart sound present, No gallops present (Cardio), No clicks present (Cardio) and No murmurs present (Cardio) RATE: regular rate RHYTHM: regular rhythm HEART SOUNDS: S1 normal heart sound present and S2 normal heart sound present GI: COMMON NORMALS: Normal to inspection, nondistended, normoactive bowel sounds present, Soft to palpation, non-tender, No hepatosplenomegaly present and no masses PALPATION: Yes Soft to palpation and Yes No hepatosplenomegaly present Neuro: COMMON NORMALS: patient oriented x3 SENSORIUM/ORIENTATION: Yes alert Course 2 Vital Signs: Vital signs: Vital Signs Temperature 98.2 F 07/31/23 15:03 Pulse Rate 93 07/31/23 14:58 Respiratory Rate 18 07/31/23 14:58 Blood Pressure 157/79 07/31/23 14:58 Pulse Oximetry 94 07/31/23 14:58 Oxygen Delivery Me thod Nasal Cannula 07/31/23 14:58 Oxygen Flow Rate 3 07/31/23 14:58 MDM - Fever Medical Decision Making Patient lab work included CBC, CMP, urinalysis, chest x-ray, chest x-ray showed bilateral atelectasis no pneumonia. Blood work showed anemia with a hemoglobin of 9.5 hematocrit 31.9, creatinine 1.1,. Patient was given 1 L normal saline. Lab work was discussed with the patient. Patient said she is feeling a little bit better and she is ready to go. Patient be discharged home to follow-up with her PCP. Differential Diagnosis Unlikely abdominal pain, acute appendicitis, calculus of kidney, constipation, diverticulitis, endometriosis, gastroenteritis, pancreatitis or small bowel obstruction Medical Records I reviewed the patient's medical records. Lab Data I reviewed the patient's lab results. 07/31/23 15:37 07/31/23 15:37 Radiology Impressions Chest X-Ray 07/31/23 15:24 IMPRESSION: Bilateral atelectasis Laboratory Results WBC 11.38 10^3/uL (3.29-11.43) 07/31/23 15:37 RBC 3.21 10^6/uL (3.85-5.65) L 07/31/23 15:37 Hgb 9.50 g/dL (11.27-16.99) L 07/31/23 15:37 Hct 31.9 % (36-47) L 07/31/23 15:37 MCV 99.4 fl (85-98) H 07/31/23 15:37 MCH 29.6 pg (27-33) 07/31/23 15:37 MCHC 29.8 g/dL (30-55) L 07/31/23 15:37 RDW 12.0 % (12.1-15.1) L 07/31/23 15:37 Plt Count 354 10^3/cmm (157-399) 07/31/23 15:37 MPV 9.1 fL (7.4-10.4) 07/31/23 15:37 Neut % (Auto) 77.5 % 07/31/23 15:37 Lymph % (Auto) 11.7 % 07/31/23 15:37 Young % (Auto) 6.7 % 07/31/23 15:37 Eos % (Auto) 1.7 % 07/31/23 15:37 Baso % (Auto) 0.4 % 07/31/23 15:37 Neut # (Auto) 8.83 10^3/uL (1.8-7.7) H 07/31/23 15:37 Lymph # (Auto) 1.3 10^3/uL (0.8-4.8) 07/31/23 15:37 Young # (Auto) 0.8 10^3/uL (0.2-0.9) 07/31/23 15:37 Eos # (Auto) 0.2 10^3/uL (0.0-0.8) 07/31/23 15:37 Baso # (Auto) 0.0 10^3/uL (0.0-0.1) 07/31/23 15:37 Nucleated RBC % (auto) 0 % 07/31/23 15:37 Nucleated RBCs # 0.0 /100WBC 07/31/23 15:37 Sodium 137 mmol/L (136-145) 07/31/23 15:37 Potassium 5.0 mmol/L (3.5-5.1) 07/31/23 15:37 Chloride 100 mmol/L (98-107) 07/31/23 15:37 Carbon Dioxide 26 mmol/L (22-29) 07/31/23 15:37 Anion Gap 16.0 (5-19) 07/31/23 15:37 BUN 22 mg/dL (8-23) 07/31/23 15:37 Creatinine 1.1 mg/dL (0.5-0.9) H 07/31/23 15:37 GFR Calculation Not Reportable 07/31/23 15:37 Glucose 116 mg/dL (65-115) H 07/31/23 15:37 Calculated Osmolality 288 mOsm/kg (285-295) 07/31/23 15:37 Calcium 8.6 mg/dL (8.5-10.5) 07/31/23 15:37 Total Bilirubin 0.3 mg/dL (0.15-1.2) 07/31/23 15:37 AST 15 U/L (0-32) 07/31/23 15:37 ALT 8 U/L (0-33) 07/31/23 15:37 Alkaline Phosphatase 99 U/L (35-105) 07/31/23 15:37 Total Protein 6.9 g/dL (6.6-8.7) 07/31/23 15:37 Albumin 2.6 g/dL (3.5-5.2) L 07/31/23 15:37 Globulin 4.3 g/dL (1.3-4.6) 07/31/23 15:37 Urine Color Yellow (Yellow) 07/31/23 16:13 Urine Appearance Clear (CLEAR) 07/31/23 16:13 Urine pH 5 (5-7) 07/31/23 16:13 Ur Specific [place] 1.020 (1.005-1.030) 07/31/23 16:13 Urine Protein Trace (Negative) 07/31/23 16:13 Urine Glucose (UA) Norm (Normal) 07/31/23 16:13 Urine Ketones Negative (Negative) 07/31/23 16:13 Urine Blood Neg (Negative) 07/31/23 16:13 Urine Nitrate Negative (Negative) 07/31/23 16:13 Urine Bilirubin Neg (Negative) 07/31/23 16:13 Prot Sulfosalicylic Acd TNP 07/31/23 16:13 Urine Urobilinogen Norm mg/dL (Negative) 07/31/23 16:13 Ur Leukocyte Esterase Trace (Negative) H 07/31/23 16:13 Urine RBC None /hpf (0-2) 07/31/23 16:13 Urine WBC 5-10 /hpf (0-5) H 07/31/23 16:13 Ur Squamous Epith Cells 5-10 /hpf (0-5) H 07/31/23 16:13 Amorphous Sediment Not Reportable 07/31/23 16:13 Urine Bacteria 1+ /hpf (NONE) H 07/31/23 16:13 All radiology interpretation(s) finalized by discharge Discharge Plan Discharge Patient Disposition: Home Clinical Impression: Generalized weakness Anemia Qualifiers: Anemia type: unspecified type Qualified Code(s): D64.9 - Anemia, unspecified Condition: Stable Prescriptions: No Action montelukast [Singulair] 10 mg tablet 10 mg PO DAILY diltiazem HCl [Cardizem] 30 mg tablet 30 mg PO BID baclofen 10 mg tablet 10 mg PO Q6H atorvastatin [Lipitor] 10 mg tablet 10 mg PO BEDTIME digoxin [Digox] 125 mcg (0.125 mg) tablet 125 mcg PO DAILY Hold Instructions: see pcp aspirin [Ecotrin Low Strength] 81 mg tablet,delayed release (DR/EC) 81 mg PO DAILY Eliquis 2.5 mg tablet 2.5 mg PO BID buspirone 15 mg tablet 15 mg PO BID levothyroxine 88 mcg capsule 88 mcg PO DAILY mirtazapine 7.5 mg tablet 7.5 mg PO DAILY trazodone 100 mg tablet 100 mg PO DAILY fluoxetine 40 mg capsule 40 mg PO DAILY oxycodone [OxyContin] 20 mg tablet,oral only,ext.rel.12 hr 20 mg PO BID (DME) glucose monitor See Rx Instructions .Route .MEDSUPPLY Qty: 1 0RF Rx Instructions: As directed (DME) lancets See Rx Instructions .Route .MEDSUPPLY Qty: 1 0RF Rx Instructions: As directed alendronate 70 mg/75 mL solution 70 mg PO Q7D oxycodone 10 mg tablet 10 mg PO Q4H PRN (Reason: Pain) Rx Instructions: 1/2 - 1 4-6 hours as needed 3.5 max (DME) glucose test strips See Rx Instructions .Route .MEDSUPPLY Qty: 50 1RF Rx Instructions: As directed cholecalciferol (vitamin D3) 1,250 mcg (50,000 unit) capsule 50,000 unit PO .qweek Qty: 14 0RF vitamin B complex Tablet 1 tab PO DAILY biotin 10,000 mcg capsule 10,000 mcg PO DAILY gabapentin 100 mg capsule 100 mg PO Q8H Qty: 90 4RF ondansetron HCl [Zofran] 4 mg Tablet 4 mg PO Q8H PRN (Reason: Nausea) cyanocobalamin (vitamin B-12) [Vitamin B-12] 1,000 mcg Tablet 1,000 mcg PO DAILY potassium chloride 10 mEq tablet extended release 10 meq PO DAILY ascorbic acid (vitamin C) [Vitamin C] 500 mg Tablet 500 mg PO DAILY omeprazole 20 mg Capsule,Delayed Release(Dr/Ec) 20 mg PO DAILY iron, carbonyl 65 mg Tablet 65 mg PO DAILY naloxone [Narcan] 4 mg/actuation [place],Non-Aerosol See Rx Instructions .ROUTE .COMPLEX Rx Instructions: as directed intranasally prn Movantik 12.5 mg tablet 12.5 mg PO QAM Keppra 500 mg tablet 1,000 mg PO BID Qty: 60 0RF Discharge Orders: Discharge ED (Routine); Ordered 07/31/23 Ordered By: Brent Martins Referrals: Roderick Andrews [Primary Care Provider] - 1 week Patient Instructions: Anemia, Weakness (Generalized) Activity Restrictions/Additional Instructions: Evaluation ER showed you are anemic with a hemoglobin of approximately 9.5. Otherwise it showed no signs of infection. Please follow-up with your family physician or your oncologist within the next 7 to 10 days to recheck your hemoglobin. Thank you for choosing [facility] for your healthcare needs today. Please realize that you were seen in the emergency department and that we are providing you with an emergency medical screening exam and this may not be a complete and all exclusive of all testing and/or medical workup we may need to determine your element or severity of your illness. It is very important that you follow-up as instructed with your primary care provider or specialist for the additional evaluation and to discuss your medical treatment plan. You may return to the emergency department should you have concerns or if your condition changes or worsens in any way. Coding Level of Care Code ED Pipe Finisher for Almaz Palmer
[2023-07-31 15:41] LABS: Basophils % 0.4 %; Eosinophils # 0.2 10^3/uL (0.0-0.8); Eosinophils % 1.7 %; Hematocrit 31.9 % (36-47); Lymphocytes # 1.3 10^3/uL (0.8-4.8); Lymphocytes % 11.7 %; Mean Corpuscular HGB Conc 29.8 g/dL (30-55); Mean Corpuscular Hemoglobin 29.6 pg (27-33); Mean Corpuscular Volume 99.4 fl (85-98); Mean Platelet Volume 9.1 fL (7.4-10.4); Monocytes # 0.8 10^3/uL (0.2-0.9); Monocytes % 6.7 %; Neutrophils # 8.83 10^3/uL (1.8-7.7); Neutrophils % 77.5 %; Nucleated Red Blood Cells % 0 %; Platelet Count 354 10^3/cmm (157-399); Red Blood Count 3.21 10^6/uL (3.85-5.65); White Blood Count 11.38 10^3/uL (3.29-11.43)
[2023-07-31 16:01] LABS: Alanine Aminotransferase 8 U/L (0-33); Albumin Level 2.6 g/dL (3.5-5.2); Alkaline Phosphatase 99 U/L (35-105); Aspartate Amino Transferase 15 U/L (0-32); Blood Urea Nitrogen 22 mg/dL (8-23); Calcium 8.6 mg/dL (8.5-10.5); Carbon Dioxide 26 mmol/L (22-29); Chloride 100 mmol/L (98-107); Globulin 4.3 g/dL (1.3-4.6); Glucose 116 mg/dL (65-115); Osmolality Calculated 288 mOsm/kg (285-295); Sodium 137 mmol/L (136-145); Total Bilirubin 0.3 mg/dL (0.15-1.2); Total Protein 6.9 g/dL (6.6-8.7)
[2023-07-31 16:04] LABS: Creatinine Clr Calc Pharmacy 30.7261
[2023-07-31 16:23] LABS: Bilirubin Urine Neg (Negative); Blood Urine Neg (Negative); Glucose Urine UA Norm (Normal); Ketones Urine Negative (Negative); Nitrate Urine Negative (Negative); Protein Urine Trace (Negative); Urine Appearance Clear (CLEAR); Urine Color Yellow (Yellow); pH Urine 5 (5-7)
[2023-07-31 16:24] LABS: Add Urine Microscopic? YES; Leukocyte Esterase Urine Trace (Negative); Urobilinogen Urine Norm (Negative)
[2023-07-31 16:27] LABS: Add Urine Culture? No; Bacteria Urine 1+ /hpf
--- NOTE | 2023-07-31 17:25 | PC.NURSE ---
per verbal order from dr. soto, cancel fluids and dc patient.
[2023-07-31 18:21] VITALS: PULSE 99; O2SAT 99
[2023-07-31 19:47] VITALS: BP 157/79; PULSE 99; RESP 18; TEMP 36.8; O2SAT 99
== END 2023-07-31 19:48 | disposition home or self-care (01) ==
PROVIDERS: Emergency Provider Emergency Medicine; PCP Family Medicine
DX: R53.1 Weakness (principal); D64.9 Anemia, unspecified; Z79.82 Long term (current) use of aspirin; Z79.01 Long term (current) use of anticoagulants; Z86.73 Personal history of transient ischemic attack (TIA), and cerebral infarction without residual deficits; I11.0 Hypertensive heart disease with heart failure; I50.9 Heart failure, unspecified; J44.9 Chronic obstructive pulmonary disease, unspecified; Z99.81 Dependence on supplemental oxygen; E78.5 Hyperlipidemia, unspecified; C7A.00 Malignant carcinoid tumor of unspecified site
CPT/HCPCS: 36415; 71045; 80053; 81001; 85025; 99284

== ENCOUNTER 2023-10-06 10:28 | Oncology outpatient (recurring) (ONCR) | payer MEDICARE, MEDICAID, SELFPAY ==
[2023-10-06 11:40] LABS: Basophils % 0.4 %; Eosinophils # 0.2 10^3/uL (0.0-0.8); Eosinophils % 2.6 %; Hematocrit 34.2 % (36-47); Lymphocytes % 29.6 %; Mean Corpuscular HGB Conc 29.2 g/dL (30-55); Mean Corpuscular Hemoglobin 29.6 pg (27-33); Mean Corpuscular Volume 101.2 fl (85-98); Mean Platelet Volume 9.8 fL (7.4-10.4); Monocytes # 0.5 10^3/uL (0.2-0.9); Monocytes % 6.8 %; Neutrophils # 4.11 10^3/uL (1.8-7.7); Neutrophils % 59.7 %; Nucleated Red Blood Cells % 0 %; Platelet Count 248 10^3/cmm (157-399); Red Blood Count 3.38 10^6/uL (3.85-5.65); Red Cell Distribution Width 14.3 % (12.1-15.1); White Blood Count 6.89 10^3/uL (3.29-11.43)
[2023-10-06 12:01] LABS: Alanine Aminotransferase 9 U/L (0-33); Albumin Level 2.9 g/dL (3.5-5.2); Alkaline Phosphatase 57 U/L (35-105); Blood Urea Nitrogen 18 mg/dL (8-23); Calcium 8.8 mg/dL (8.5-10.5); Carbon Dioxide 21 mmol/L (22-29); Chloride 101 mmol/L (98-107); Globulin 5.2 g/dL (1.3-4.6); Glucose 86 mg/dL (65-115); Osmolality Calculated 285 mOsm/kg (285-295); Sodium 137 mmol/L (136-145); Total Bilirubin 0.3 mg/dL (0.15-1.2); Total Protein 8.1 g/dL (6.6-8.7)
[2023-10-06 12:04] LABS: Anion Gap 19.5 (5-19); Potassium 4.5 mmol/L (3.5-5.1)
[2023-10-06 12:05] LABS: Aspartate Amino Transferase 28 U/L (0-32)
[2023-10-06 15:40] LABS: Immunoglobulin IGA 502 mg/dL (70-400); Immunoglobulin IGG 2160 mg/dL (700-1600); Immunoglobulin IGM 83 mg/dL (40-230)
[2023-10-07 13:49] LABS: KAPPA LIGHT CHAIN, FREE, SERUM 192.3 mg/L (3.3-19.4); KAPPA/LAMBDA LIGHT CHAINS FREE 1.65 (0.26-1.65); LAMBDA LIGHT CHAIN, FREE, SERU 116.5 mg/L (5.7-26.3)
[2023-10-08 02:55] LABS: PROTEIN, TOTAL 7.8 g/dL (6.1-8.1)
[2023-10-10 12:08] LABS: ALBUMIN 3.1 g/dL (3.8-4.8); ALPHA 1 GLOBULIN 0.4 g/dL (0.2-0.3); ALPHA 2 GLOBULIN 1.1 g/dL (0.5-0.9); BETA 1 GLOBULIN 0.4 g/dL (0.4-0.6); BETA 2 GLOBULIN 0.6 g/dL (0.2-0.5); GAMMA GLOBULIN 2.2 g/dL (0.8-1.7)
[2023-10-14 17:20] LABS: Chromogranin A LC/MS/MS 934 ng/mL (ADULTS: <311)
[2023-10-14 17:30] LABS: Serotonin Whole Blood <10 ng/mL (56-244)
== END 2023-10-22 23:59 | disposition home or self-care (01) ==
PROVIDERS: Internal Medicine Medical Oncology; PCP Family Medicine; Visit Provider Neurological Surgery
DX: C7A.019 Malignant carcinoid tumor of the small intestine, unspecified portion (principal); M81.0 Age-related osteoporosis without current pathological fracture; R05.8 Other specified cough; Z79.899 Other long term (current) drug therapy
CPT/HCPCS: 36415; 80053; 82784; 83883; 84155; 84165; 84260; 85025; 86316; 99214

== ENCOUNTER → 2024-03-21 13:49 | Outpatient (BNVA) | payer MEDICARE, MEDICAID, SELFPAY | PROVIDERS: PCP Family Medicine; Visit Provider Thoracic Surgery (Cardiothoracic Vascular Surgery) | DX: L89.103 Pressure ulcer of unspecified part of back, stage 3 (principal); I96 Gangrene, not elsewhere classified | CPT/HCPCS: 11042; 99203; A6212 ==

== ENCOUNTER → 2024-03-28 14:42 | Outpatient (BNVA) | payer MEDICARE, MEDICAID, SELFPAY | PROVIDERS: PCP Family Medicine; Visit Provider Thoracic Surgery (Cardiothoracic Vascular Surgery) | DX: Z09 Encounter for follow-up examination after completed treatment for conditions other than malignant neoplasm (principal); Z87.2 Personal history of diseases of the skin and subcutaneous tissue | CPT/HCPCS: 99212; A6212 ==

== ENCOUNTER → 2025-01-02 14:39 | Outpatient (BNVA) | payer MEDICARE, MEDICAID, SELFPAY | PROVIDERS: PCP Family Medicine; Visit Provider Podiatrist Foot & Ankle Surgery | DX: I73.9 Peripheral vascular disease, unspecified (principal); L60.3 Nail dystrophy; L85.1 Acquired keratosis [keratoderma] palmaris et plantaris | CPT/HCPCS: 11721; 17110 ==